=== PATIENT | male | born 1955 | race Caucasian/White ===

== ENCOUNTER 2016-10-31 07:42 | Day surgery (SDC) | payer OTHER ==
[~2016-10-31] VITALS: Ht 172.7 cm; Wt 142.0 kg
[2016-10-31 08:18] VITALS: BP 167/86; PULSE 129; RESP 20; TEMP 98.2; O2SAT 94
[2016-10-31] MEDS ORDERED: HYDR50TA15 PO (08:28)
[2016-10-31] MEDS ORDERED: ASPI81CH CHEW (08:28)
[2016-10-31] MEDS ORDERED: PIOG30TA4 PO (08:28)
[2016-10-31] MEDS ORDERED: VALS320T6 PO (08:28)
[2016-10-31] MEDS ORDERED: METF1000 PO (08:28)
[2016-10-31] MEDS ORDERED: SIMV40TA PO (08:28)
[2016-10-31] MEDS ORDERED: INSU1INJ14 SQ (08:28)
[2016-10-31] MEDS ORDERED: VICT18IN SQ (08:28)
[2016-10-31] MEDS ORDERED: FURO40TA PO (08:28)
[2016-10-31] MEDS ORDERED: METO50TA11 PO (08:28)
[2016-10-31] MEDS ORDERED: AMLO10TA2 PO (08:28)
[2016-10-31] MEDS ORDERED: NOVOLOGP2 SQ (08:28)
[2016-10-31] MEDS ORDERED: NS 1000P @30 MLS/HR (KVO) IV SCH (08:30)
[2016-10-31 08:35] LABS: AUTOMATED NEUTROPHIL # 5.2 TH/MM3 (1.8-7.7); BASOPHIL % 0.3 % (0.0-2.0); EOSINOPHIL # 0.1 TH/MM3 (0-0.4); EOSINOPHIL % 1.2 % (0.0-4.0); HEMATOCRIT 36.4 % (39.0-51.0); LYMPH % 13.9 % (9.0-44.0); MEAN CELL VOLUME 77.8 FL (80.0-100.0); MEAN CORPUSCULAR HEMOGLOBIN 24.9 PG (27.0-34.0); MONO % 10.8 % (0.0-8.0); NEUT % 73.8 % (16.0-70.0); PLATELET COUNT 192 TH/MM3 (150-450); RED BLOOD COUNT 4.68 MIL/MM3 (4.50-5.90); RED CELL DISTRIBUTION WIDTH 17.5 % (11.6-17.2)
[2016-10-31 08:39] LABS: HEMO FLAGS AUTO DIFF
[2016-10-31 08:45] LABS: APTT (PATIENT) 30.5 SEC (24.3-30.1); PROTHROMBIN TIME - PATIENT 11.3 SEC (9.8-11.6)
[2016-10-31 08:49] LABS: BICARBONATE 30.4 MEQ/L (21.0-32.0); POTASSIUM 4.1 MEQ/L (3.5-5.1)
[2016-10-31] MEDS ORDERED: HEPARIN-NS/PF INJ 500 ML ONE ×2 (09:27→10:45)
[2016-10-31] MEDS ORDERED: HYDROCORTISONE SOD SUCCINATE 100 MG VIAL ONE (09:28)
[2016-10-31] MEDS ORDERED: diphenhydrAMINE HCL 50 MG/ML VIAL ONE (09:28)
[2016-10-31] MEDS ORDERED: FAMOTIDINE 20 MG/2 ML VIAL ONE (09:28)
[2016-10-31] MEDS ORDERED: HEPARIN SODIUM - IV 10,000 UNITS/10 ML VIAL ONE (09:29)
[2016-10-31] MEDS ORDERED: MIDAZOLAM HCL 2 MG/2 ML VIAL ONE (09:29)
[2016-10-31] MEDS ORDERED: NITROGLYCERIN INJ 5 ML ONE (09:29)
[2016-10-31] MEDS ORDERED: VERAPAMIL HCL 5 MG/2 ML VIAL ONE (09:29)
[2016-10-31 09:33] LABS: PLATELET ESTIMATE SMEAR NORMAL (NORMAL); PLATELET MORPHOLOGY NORMAL (NORMAL); SCAN/DIFF AUTO DIFF CONFIRMED
[2016-10-31] MEDS ORDERED: IOHEXOL 350 MG/ML 50 ML BTL (for EPS) OTHER ONE (11:30)
--- NOTE | 2016-10-31 12:41 | MA ---
cc: PATRICIA FRANKLIN VARTAN MD GOLDSMITH, ALAN S. M.D. DATE: 10/31/2016 PROCEDURE Left heart catheterization, coronary angiogram. PREPROCEDURE DIAGNOSIS 1. Shortness of breath concerning for anginal equivalent with a Faroese anginal score of 3. 2. Abnormal CT of the coronaries showing extensive multivessel disease. POSTPROCEDURE DIAGNOSIS Multivessel disease as below. FLUOROSCOPY TIME 5.6 minutes. CONTRAST USED 40 cc. ESTIMATED BLOOD LOSS 10 cc. MEDICATIONS USED Versed 1 mg, fentanyl 50 mcg, verapamil 2.5 mg, nitroglycerin 200 mcg, heparin 4000 units. PROCEDURAL SUMMARY Urbano Bradley is a pleasant 61-year-old male who sees Dr. Roblero in the office and has been concerned with extensive shortness of breath over the past few months. Dr. Roblero decided that Urbano should undergo a coronary CT as it was felt due to his BMI that a stress test may not be as viable. Coronary CT showed extensive multivessel disease. He was recommended for cardiac catheterization for coronary anatomy. The risks, benefits and alternatives were explained to the patient and he consented as such. He was brought to the cardiac catheterization lab and prepped in the usual sterile fashion. The right radial artery was accessed using a modified Seldinger technique. A 5/6 Slender sheath was then inserted and aspirated and flushed with ease. A JR4 was then taken up over a J-wire to the ascending aorta. This was used to cross into the left ventricle and pressures were measured with an LVEDP of 32. The JR4 was then pulled back across the aortic valve showing no significant gradient for aortic stenosis. A JR4 was then used for selective angiography of the right coronary artery. The midportion of the right coronary artery is 100% occluded with a questionable bridging collateral which supplies somewhat of the distal vessel. There is competitive flow in the distal right coronary artery. The JR4 was then exchanged for a JL3.5. The JL3.5 was noted to cause some ventricularization when inserted into the left main concerning for disease. The JL3.5 was rotated out of the left main somewhat and angiography shows probable distal 60% stenosis of the left main. The left main gives off two vessels, with the LAD having significant disease diffusely with 70% proximal and mid to distal multiple 90% lesions. It does also give off one major diagonal which appears diffusely diseased at 50%. The left circumflex does have a mid lesion of 50-60% with three obtuse marginals. The first obtuse marginals is extremely small with moderate disease throughout. The second and third obtuse marginals appear to be larger in nature with proximal lesions of 70%. The left coronary system does supply collaterals to the right coronary system. The JL3.5 was then removed over a J-wire. A TR band was placed over the radial arteriotomy site and the sheath was removed. 10 cc of air was placed into the TR band. The patient left the cardiac catheterization lab cardiovascularly stable. IMPRESSION 1. Multivessel disease with shortness of breath, Faroese anginal score of 3. 2. Abnormal CT coronary showing extensive multivessel disease. 3. Elevated left ventricular end-diastolic pressure. RECOMMENDATIONS 1. Urbano Bradley appears to have extensive coronary artery disease and he will be recommended for CT surgery. 2. I spoke to Charlette, the nurse practitioner. for CT surgery and they will see him post procedure. 3. Further recommendations will be made after seen by CT surgery. Thank you for allowing me to see Urbano Bradley. If there are any questions, please do not hesitate to call. Patricia Franklin DO VGP/BT /11:53 AM /12:20 PM
[2016-10-31] MEDS ORDERED: CHLORHEXIDINE GLUCONATE 4% SOLN 120 ML BTL TOPICAL SCH (15:00)
--- NOTE | 2016-10-31 16:47 | RADRPT ---
EXAM DATE/TIME: 10/31/2016 15:24 [facility] COMPARISON: No previous studies available for comparison. INDICATIONS : Preop cardiac surgery. MEDICAL HISTORY : Hypertension. Diabetes. Shortness of breath. SURGICAL HISTORY : Cardiac cath. ENCOUNTER: Initial ACUITY: 3 months PAIN SCORE: 0/10 LOCATION: Bilateral neck PEAK SYSTOLIC VELOCITIES (cm/sec): ICA/CCA RATIO: Right: 1.9 Left: 2.4 ICA: Right: 160 Left: 210 CCA: Right: 82 Left: 87 ECA: Right: 153 Left: 167 VERTEBRAL: Right: 48 antegrade Left: 65 antegrade Elevated flow velocities and ICA/CCA ratios have been found to correlate with increased degrees of vessel stenosis, calculated as percentage of diameter relative to a normal segment of distal ICA/CCA FINDINGS: Examination quality is less than optimal due to patient body habitus. RIGHT CAROTID: There is calcified plaque in the carotid bulb and proximal internal carotid artery. The waveforms ar e within normal limits. LEFT CAROTID: There is calcified plaque in the carotid bulb. The waveforms are within normal limits. VERTEBRAL ARTERIES: Antegrade flow is seen in both vertebral arteries. MISCELLANEOUS: None. CONCLUSION: 1. Mildly elevated peak systolic velocity measurements in the proximal internal carotid arteries bila terally suggesting between 50-69% stenosis. 2. There is antegrade flow within both vertebral arteries. Jay Amado MD on October 31, 2016 at 16:44 Board Certified Radiologist. This report was verified electronically.
--- NOTE | 2016-10-31 16:48 | RADRPT ---
EXAM DATE/TIME: 10/31/2016 15:56 [facility] COMPARISON: No previous studies available for comparison. EXTERNAL COMPARISON : [facility], US LEG, RIGHT VENOUS DOPPLER, July 19, 2016, March 30, 2014. INDICATIONS : Preop cardiac surgery. MEDICAL HISTORY : Hypertension. Diabetes. Shortness of breath. SURGICAL HISTORY : Cardiac cath. ENCOUNTER: Initial ACUITY: 3 months PAIN SCORE: 0/10 LOCATION: Bilateral leg. TECHNIQUE: Venous ultrasound of the left and right leg was performed from the inguinal ligament to the proximal calf. Real-time, color Doppler and spectral tracing, compression and augmentation techniques were us ed. FINDINGS: RIGHT LEG: There is normal compressibility of the deep venous system from the inguinal region to the proximal ca lf. No echogenic clot is seen in the lumen of the common femoral, femoral, popliteal, and posterior tibial veins. There is a normal response of the venous system to proximal and distal augmentation an d respiration. LEFT LEG: There is normal compressibility of the deep venous system from the inguinal region to the proximal ca lf. No echogenic clot is seen in the lumen of the common femoral, femoral, popliteal, and posterior tibial veins. There is a normal response of the venous system to proximal and distal augmentation an d respiration. CONCLUSION: Normal examination. Jay Mcdonnell MD on October 31, 2016 at 16:46 Board Certified Radiologist. This report was verified electronically.
--- NOTE | 2016-10-31 17:01 | RADRPT ---
EXAM DATE/TIME: 10/31/2016 16:08 [facility] COMPARISON: No previous studies available for comparison. EXTERNAL COMPARISON : [facility], US LEG, RIGHT VENOUS DOPPLER, July 19, 2016, March 30, 2014. INDICATIONS : Preop cardiac surgery. MEDICAL HISTORY : Hypertension. Diabetes. Shortness of breath. SURGICAL HISTORY : Cardiac cath. ENCOUNTER: Initial ACUITY: 3 months PAIN SCORE: 0/10 LOCATION: Bilateral leg. GREATER SAPHENOUS VEIN THIGH: PROXIMAL: Right 5 mm Left 6 mm MID: Right 4 mm Left 3 mm DISTAL: Right 4 mm Left 3 mm CALF: PROXIMAL: Right 3 mm Left 3 mm MID: Right 3 mm Left 2 mm DISTAL: Right 3 mm Left 2 mm FINDINGS: The venous system of the lower extremities are patent by color Doppler imaging. Measurements of the leg veins (in mm) are listed above. CONCLUSION: Bilateral saphenous vein measurements are described above. No evidence of deep venous thrombosis with in the lower extremities. Shahid Leon MD on October 31, 2016 at 16:58 Board Certified Radiologist. This report was verified electronically.
--- NOTE | 2016-10-31 17:26 | EKG ---
Date Performed: 10/31/2016 Time Performed: 08:38:32 PTAGE: 61 years EKG: Sinus rhythm Possible inferior infarct - age undetermined Poor R wave progression Lateral ST-T changes may be due to myocardial ischemia Abnormal ECG NO PREVIOUS TRACING DOCTOR: Isac Bowie Interpretating Date/Time 10/31/2016 17:24:57
--- NOTE | 2016-10-31 17:40 | RADRPT ---
EXAM DATE/TIME: 10/31/2016 17:16 [facility] COMPARISON: No previous studies available for comparison. INDICATIONS : Evaluate for pneumonia, pneumothorax, and communicable disease. Pre op for open heart surgery. MEDICAL HISTORY: Hypertension. Diabetes. Shortness of breath. SURGICAL HISTORY: Cardiac cath. ENCOUNTER: Initial ACUITY: 1 week PAIN SCORE: 3/10 LOCATION: Bilateral chest FINDINGS: The heart is enlarged. Minimal increased interstitial changes are noted suggesting minimal pulmonary vascular congestion. Degenerative changes are noted throughout the thoracic spine. CONCLUSION: 1. Cardiomegaly. 2. Minimal increased interstitial changes suggesting minimal pulmonary vascular congestion. Clinical correlation is recommended. Shahid Leon MD on October 31, 2016 at 17:34 Board Certified Radiologist. This report was verified electronically.
[2016-10-31 17:44] LABS: HEMOGLOBIN A1b 0.8 %; HEMOGLOBIN F 1.2 %; HEMOGLOBIN P3 4.1 %
--- NOTE | 2016-10-31 18:00 | PD.CAR.PN ---
CVT Progress Note Subjective/Hospital Course: sts data discussed with pt RISK SCORES About the STS Risk Calculator Procedure: CAB Only Risk of Mortality: 1.234% Morbidity or Mortality: 13.957% Long Length of Stay: 5.751% Short Length of Stay: 42.689% Permanent Stroke: 0.711% Prolonged Ventilation: 9.463% DSW Infection: 1.276% Renal Failure: 4.224% Reoperation: 4.363% Objective: Vital Signs Date Time Temp Pulse Resp B/P Pulse Ox O2 Delivery O2 Flow Rate FiO2 10/31/16 13:02 94 Room Air 10/31/16 08:18 98.2 129 20 167/86 94 Labs: Laboratory Tests Test 10/31/16 08:15 White Blood Count 7.0 TH/MM3 (4.0-11.0) Red Blood Count 4.68 MIL/MM3 (4.50-5.90) Hemoglobin 11.6 GM/DL (13.0-17.0) Hematocrit 36.4 % (39.0-51.0) Mean Corpuscular Volume 77.8 FL (80.0-100.0) Mean Corpuscular Hemoglobin 24.9 PG (27.0-34.0) Mean Corpuscular Hemoglobin 32.0 % Concent (32.0-36.0) Red Cell Distribution Width 17.5 % (11.6-17.2) Platelet Count 192 TH/MM3 (150-450) Mean Platelet Volume 9.1 FL (7.0-11.0) Neutrophils (%) (Auto) 73.8 % (16.0-70.0) Lymphocytes (%) (Auto) 13.9 % (9.0-44.0) Monocytes (%) (Auto) 10.8 % (0.0-8.0) Eosinophils (%) (Auto) 1.2 % (0.0-4.0) Basophils (%) (Auto) 0.3 % (0.0-2.0) Neutrophils # (Auto) 5.2 TH/MM3 (1.8-7.7) Lymphocytes # (Auto) 1.0 TH/MM3 (1.0-4.8) Monocytes # (Auto) 0.8 TH/MM3 (0-0.9) Eosinophils # (Auto) 0.1 TH/MM3 (0-0.4) Basophils # (Auto) 0.0 TH/MM3 (0-0.2) CBC Comment AUTO DIFF Differential Comment AUTO DIFF CONFIRMED Platelet Estimate NORMAL (NORMAL) Platelet Morphology Comment NORMAL (NORMAL) Prothrombin Time 11.3 SEC (9.8-11.6) Prothromb Time International 1.0 RATIO Ratio Activated Partial 30.5 SEC Thromboplast Time (24.3-30.1) Sodium Level 141 MEQ/L (136-145) Potassium Level 4.1 MEQ/L (3.5-5.1) Chloride Level 106 MEQ/L (98-107) Carbon Dioxide Level 30.4 MEQ/L (21.0-32.0) Anion Gap 5 MEQ/L (5-15) Blood Urea Nitrogen 20 MG/DL (7-18) Creatinine 0.96 MG/DL (0.60-1.30) Estimat Glomerular Filtration 79 ML/MIN (>89) Rate Random Glucose 111 MG/DL (74-106) Calcium Level 9.1 MG/DL (8.5-10.1) Result Diagram: 10/31/16 0815 10/31/16 0815 Diamond kSy Oct 31, 2016 18:00
[2016-10-31 18:29] LABS: BLOOD, URINE NEG (NEG); COMMENT (UR) CULT NOT INDICATED; CULTURE IF INDICATED CULT NOT INDICATED; GLUCOSE,URINE NEG (NEG); KETONE, URINE NEG (NEG); NITRITE,URINE NEG (NEG); URINE COLOR YELLOW (YELLW/STRAW)
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
--- NOTE | 2016-11-06 10:00 | RSPPFT ---
DATE OF PROCEDURE: 10/31/16 COMMENTS: Spirometry with FVC of 11, FEV1 of 0.8, FEV1/FVC ratio at 73%. Flow volume loops suggest airways obstruction. IMPRESSION: 1. Severe airways obstruction. 2. Post-bronchodilator study was not performed.
[2016-11-21] MEDS ORDERED: rolling walker (15:19)
[2016-11-23] MEDS ORDERED: DIOV80TA4 PO (08:32)
[2016-11-23] MEDS ORDERED: THERTAB15 PO (08:32)
[2016-11-23] MEDS ORDERED: CEPH500C PO (08:32)
[2016-11-23] MEDS ORDERED: PANT40TA3 PO (08:32)
[2016-11-23] MEDS ORDERED: ASPI81CH CHEW (08:32)
[2016-11-23] MEDS ORDERED: FERR325T PO (08:32)
[2016-11-23] MEDS ORDERED: METO50TA11 PO (08:32)
[2016-11-23] MEDS ORDERED: LEVEMIR SQ (08:32)
[2016-11-23] MEDS ORDERED: DOCU1CAP39 PO (08:32)
[2016-11-23] MEDS ORDERED: POTA20TA5 PO (08:32)
[2016-11-23] MEDS ORDERED: PLAV75TA29 PO (08:32)
[2016-11-23] MEDS ORDERED: PIOG30TA4 PO (08:32)
[2016-11-23] MEDS ORDERED: SIMV40TA PO (08:32)
[2016-11-23] MEDS ORDERED: AMIO200T PO (08:32)
[2016-11-23] MEDS ORDERED: FURO1TAB60 PO (08:32)
[2016-11-23] MEDS ORDERED: METF1000 PO (08:32)
[2017-01-29] MEDS ORDERED: DIOV80TA4 PO (12:45)
[2017-01-29] MEDS ORDERED: PLAV75TA29 PO (12:45)
[2017-01-29] MEDS ORDERED: PANT40TA3 PO (12:45)
[2017-01-29] MEDS ORDERED: POTA20TA5 PO (12:45)
== END 2016-10-31 18:33 | disposition home or self-care (01) ==
LOC: HCAT 07:42 → HDIC 08:14 → HCAT 18:33
PROVIDERS: ATTEND Nuclear Medicine Nuclear Cardiology
DX: I25.10 Atherosclerotic heart disease of native coronary artery without angina pectoris (principal); R94.31 Abnormal electrocardiogram [ECG] [EKG]; E11.9 Type 2 diabetes mellitus without complications; E78.5 Hyperlipidemia, unspecified; I10 Essential (primary) hypertension; E66.01 Morbid (severe) obesity due to excess calories; Z68.42 Body mass index [BMI] 45.0-49.9, adult; Z79.4 Long term (current) use of insulin; Z79.899 Other long term (current) drug therapy
CPT/HCPCS: 71020; 80048; 81001; 83036; 85025; 85610; 85730; 87641; 93005; 93454; 93880; 93970; 93998; 94010; C1769; C1893; J1200; J1644; J1720; J2250; J3010; J7030; Q9967

== ENCOUNTER 2016-11-01 11:43 | Inpatient (IN) | payer OTHER ==
[~2016-11-01] VITALS: Ht 174 cm; Wt 140.6 kg
[~2016-11-01 11:43] MED LIST: AMLO10TA2 PO; ASPI81CH CHEW; FURO40TA PO; HYDR50TA15 PO; INSU1INJ14 SQ; METF1000 PO; METO50TA11 PO; NOVOLOGP2 SQ; PIOG30TA4 PO; SIMV40TA PO; VALS320T6 PO; VICT18IN SQ
[2016-11-07] VITALS (11 sets, daily range): BP systolic 93–159; BP diastolic 44–80; PULSE 72–97; RESP 12–22; TEMP 97.8–98.2; O2SAT 92–96
[2016-11-07] MEDS ORDERED: ceFAZolin 2 GM PREMIX 50 ML IV ONE (05:00)
[2016-11-07] MEDS ORDERED: VECURONIUM BROMIDE 10 MG VIAL IV ONE (05:00)
[2016-11-07] MEDS ORDERED: HEPARIN SODIUM - SQ 10,000 UNITS/ML VIAL SQ ONE (05:00)
[2016-11-07] MEDS ORDERED: DEXMEDETOMIDINE INJ 50 ML IV ONE (05:00)
[2016-11-07] MEDS ORDERED: AMINOCAPROIC ACID INJ 250 MG/ML 20 ML VIAL IV ONE (05:00)
[2016-11-07] MEDS ORDERED: PROTAMINE SULFATE 250 MG/25 ML VIAL IV ONE ×2 (05:00→11:52)
[2016-11-07] MEDS ORDERED: FUROSEMIDE 100 MG/10 ML VIAL IV PUSH ONE (05:00)
[2016-11-07] MEDS ORDERED: MAGNESIUM SULFATE 1000 MG/2 ML VIAL (PED) IV ONE (05:00)
[2016-11-07] MEDS ORDERED: CEFAZOLIN 500 MG in NS IRR BTL 500 ML IRRIGATION SCH (05:45)
[2016-11-07] MEDS ORDERED: INSULIN REGULAR 100 UNITS in NS 100 ML IV SCH (05:45)
[2016-11-07] MEDS ORDERED: METOPROLOL TARTRATE 25 MG TAB PO SCH (05:45)
[2016-11-07] MEDS ORDERED: INSULIN HUMAN REGULAR 1,000 UNITS/10 ML VIAL SQ PRN (05:45)
[2016-11-07] MEDS ORDERED: CHLORHEXIDINE GLUCONATE 4% SOLN 120 ML BTL TOPICAL SCH (05:45)
[2016-11-07] MEDS ORDERED: METOPROLOL TARTRATE 25 MG TAB PO PRN (05:45)
[2016-11-07] MEDS ORDERED: ceFAZolin 2 GM PREMIX 50 ML IV SCH (05:45)
[2016-11-07] MEDS ORDERED: HEPARIN SODIUM - IV 10,000 UNITS/10 ML VIAL ONE ×2 (06:14→06:35)
[2016-11-07] MEDS ORDERED: HEPARIN SODIUM - SQ 10,000 UNITS/ML VIAL ONE (06:14)
[2016-11-07] MEDS ORDERED: VANCOMYCIN HCL 1000 MG VIAL ONE ×2 (06:14→13:36)
[2016-11-07] MEDS ORDERED: methylPREDNISolone SOD SUCC 125 MG/2 ML VIAL ONE (06:15)
[2016-11-07] MEDS ORDERED: ALBUMIN HUMAN 25% 12.5 GM/50 ML BAGP IV ONE (06:33)
[2016-11-07] MEDS ORDERED: POTASSIUM CHLORIDE 20 MEQ/10 ML VIAL ONE (06:33)
[2016-11-07] MEDS ORDERED: CARDIOPLEGIC IRR 1,000 ML ONE (06:33)
[2016-11-07] MEDS ORDERED: SODIUM BICARBONATE 8.4% INJ 50 ML ONE (06:34)
[2016-11-07] MEDS ORDERED: MANNITOL INJ 50 ML ONE (06:34)
[2016-11-07] MEDS ORDERED: SODIUM CHLORID 0.9% 500 ML IV SCH (07:00)
[2016-11-07] MEDS ORDERED: LACTATED RINGER'S 1000 ML IV SCH (07:00)
[2016-11-07] MEDS ORDERED: MUPIROCIN 2% OINT 22 GM TUBE EACH NARE SCH (09:00)
[2016-11-07] MEDS ORDERED: MUPIROCIN 2% OINT 1 APPLIC/GM SYR NASAL SCH (09:00)
[2016-11-07] MEDS: PAPAVERINE 60 MG-NITROGLYCERIN 100 MCG-DILTIAZEM 100 MG in NS 100 ML IRRIGATION SCH ×8 (09:14→09:15)
[2016-11-07] MEDS ORDERED: NORMOSOL R INJ 2,000 ML IV ONE (11:52)
[2016-11-07] MEDS ORDERED: SODIUM CHLOR 0.9% 250 ML INJ 500 ML IV ONE (11:52)
[2016-11-07] MEDS ORDERED: LACTATED RINGER'S 1000 ML INJ 3,000 ML IV ONE (11:52)
[2016-11-07] MEDS ORDERED: SODIUM CHLORID 0.9% 500 ML INJ 500 ML IV ONE (11:52)
[2016-11-07] MEDS ORDERED: SODIUM CHLORIDE 0.9% INJ 100 ML IV ONE (11:52)
[2016-11-07] MEDS ORDERED: ACETAMINOPHEN 650 MG SUPP RECTAL PRN (12:45)
[2016-11-07] MEDS ORDERED: ONDANSETRON HCL 4 MG/2 ML VIAL IV PUSH PRN (12:45)
[2016-11-07] MEDS ORDERED: CALCIUM CHLORIDE 10% 1 GRAM/10 ML VIAL IV PRN (12:45)
[2016-11-07] MEDS ORDERED: hydrALAZINE HCL 20 MG/ML VIAL IV PRN (12:45)
[2016-11-07] MEDS ORDERED: SODIUM CHLORIDE 0.9% FLUSH 5 ML FLUSH IV FLUSH PRN (12:45)
[2016-11-07] MEDS ORDERED: POTASSIUM CHLOR 20 MEQ PREMIX 100 ML IV PRN ×3 (12:45)
[2016-11-07] MEDS ORDERED: ACETAMINOPHEN 325 MG TAB PO PRN (12:45)
[2016-11-07] MEDS ORDERED: POTASSIUM CHLORIDE 20 MEQ CONTROLLED RELEASE TAB PO PRN ×2 (12:45)
[2016-11-07] MEDS ORDERED: LACTATED RINGER'S 1000 ML INJ 500 ML IV PRN (12:45)
[2016-11-07] MEDS ORDERED: METOPROLOL TARTRATE 5 MG/5 ML VIAL IV PUSH PRN (12:45)
[2016-11-07] MEDS ORDERED: INSULIN REGULAR (IV INFUSION) 100 UNITS in SODIUM CHLORIDE 0.9% INJ 99 ML IV SCH (12:45)
[2016-11-07] MEDS ORDERED: CALCIUM CHLORIDE INJ 1 GM in SODIUM CHLORIDE 0.9% INJ 100 ML IV PRN (12:45)
[2016-11-07] MEDS ORDERED: DEXTROSE 50% IN WATER 50 ML VIAL(D50) IV PUSH PRN (12:45)
[2016-11-07] MEDS ORDERED: MAGNESIUM SULFATE INJ 2 GM in SODIUM CHLORIDE 0.9% INJ 100 ML IV PRN ×4 (12:45)
[2016-11-07] MEDS ORDERED: Post-op Orders (for Pharmacy) MISC OTHER ONE (12:45)
[2016-11-07] MEDS ORDERED: SUGAMMADEX SODIUM 200 MG/2 ML VIAL IV PUSH ONE ×2 (12:54)
--- NOTE | 2016-11-07 12:56 | PD.OP ---
cc: Sanjiv Reynolds MD; Rhonda Roth MD Operative Report Date of Surgery: Nov 07, 2016 Preoperative Diagnosis: (1) CAD (coronary artery disease) (2) Angina pectoris, crescendo (3) Morbid obesity Postoperative Diagnosis: same Procedure: CABG x 3 SANDOVAL to LAD - fair SVG to OM - fair SVG to PDA - fair EVH Anesthesia: General Surgeon: Rhonda Roth Strategic Debriefing Specialist(s): KARINA Nino Operation and Findings: The risks, benefits, complications, treatment options, and expected outcomes were discussed with the patient. The possibilities of reaction to medication, pulmonary aspiration, perforation of viscus, bleeding, recurrent infection, the need for additional procedures, failure to diagnose a condition, and creating a complication requiring transfusion or operation were discussed with the patient. The patient concurred with the proposed plan, giving informed consent. The site of surgery properly noted/marked. The patient was taken to Operating Room, identified as Urbano Bradley and the procedure verified as CABG, EVH. A Time Out was held and the above information confirmed. Standard monitoring lines and Welsh catheter were placed. General anesthesia was induced. The patient was prepped and draped in a sterile fashion. A median sternotomy was performed and electrocautery was used to obtain hemostasis. The left internal mammary artery was procured as a pedicle from the 7th rib to the 1st rib in the usual manner. Simultaneously left greater saphenous vein was procured from the left leg using a minimally invasive endoscopic technique. The vein was prepared for anastomosis and the leg wound was irrigated and closed in 2 layers. The pericardium was opened and a pericardial sling was created using interrupted 0 silk sutures. The patient was heparinized for cardiopulmonary bypass and the distal mammary pedicle was instrumented for anastomosis. The heart was instrumented for cardiopulmonary bypass in the usual manner. Antegrade blood cardioplegia was employed. The patient was placed on cardiopulmonary bypass. An aortic cross-clamp was applied and the heart was arrested using cold blood cardioplegia. Antegrade cardioplegia was administered after he each anastomosis. After adequate arrest, the distal right coronary circulation was investigated and the PDA was opened with a [place] blade and found to be a 1 millimeter fair target with diffuse disease. Saphenous vein was approximated to the PDA artery using a running 7 0 Prolene suture. The graft was measured for length and orientation and the proximal anastomosis was constructed to the ascending aorta using a running 5 0 Prolene suture after creating an aortotomy with a 5 millimeter punch. The 1st circumflex marginal artery was then opened with a [place] blade and found to be a 1 millimeter fair target. Saphenous vein was approximated to the OM1 artery using a running 7 0 Prolene suture. The graft was measured for length and orientation and was suspended from the pericardium. The distal LAD was opened with a [place] blade and found to be a 1 millimeter fair target with diffuse disease. The left internal mammary artery was approximated to the LAD using a running 7 0 Prolene suture. The pedicle was attached to the epicardium using interrupted 5 0 silk suture. The patient was systemically rewarmed and received a hotshot dose of warm blood cardioplegia. The aorta was vented and the proximal anastomosis to the OM1 graft was accomplished using a running 5 0 Prolene suture after creating an aortotomy was a 5 millimeter punch. The cross-clamp was removed and all proximal and distal anastomoses were examined for hemostasis. The patient was weaned from cardiopulmonary bypass. Protamine was given. There was no adverse reaction. Decannulation was carried out without incident. Wound was checked for hemostasis which was obtained using electrocautery. A 36 Dominican mediastinal and 32 Dominican left pleural chest was were placed and secured to the skin with 0 silk suture. The sternum was closed with stainless steel wire and a plating system due to the patient's morbid obesity. The fascia was closed with 1. PDS. The subcutaneous tissue was closed using a running 2-0 Vicryl suture. The skin was closed with 4-0 Monocryl. Sterile dressings were placed. At the end of the operation, all sponge, instruments, and needle counts were correct. The patient was transferred to the CVICU in stable condition. Findings: Diffuse coronary disease with fair to poor distal targets. Large epicardial fat deposition XC: 83 min CPB: 96 min Drains: mediastinal x 1 pleural x 1 Complications: none Disposition: to CVICU in stable condition Rhonda Roth MD Nov 07, 2016 12:56
[2016-11-07] MEDS ORDERED: CLEVIDIPINE INJ 50 ML IV SCH (13:30)
[2016-11-07] MEDS ORDERED: MIDAZOLAM HCL 5 MG/5 ML VIAL ONE (13:40)
[2016-11-07] MEDS ORDERED: fentaNYL CITRATE 1000 MCG/20 ML VIAL ONE (13:40)
--- NOTE | 2016-11-07 14:58 | RADRPT ---
EXAM DATE/TIME: 11/07/2016 13:46 [facility] COMPARISON: CHEST PA & LAT, October 31, 2016, 17:16. INDICATIONS : S/p cabg. MEDICAL HISTORY : Hypertension. SURGICAL HISTORY : cardiac cath ENCOUNTER: Initial ACUITY: 1 day PAIN SCORE: Non-responsive. LOCATION: Bilateral chest FINDINGS: Postsurgical changes are identified following CABG. Supportive devices which includes endotracheal tu be, nasogastric tube, right jugular sheath, mediastinal drain and left thoracostomy tubes are in good position. Lungs are hypoaerated. There is focal airspace disease in the left base. There is loss of pneumothorax or significant congestion. CONCLUSION: Surgical changes status post CABG. Support devices in good position. No evidence of pneumothorax or significant congestion. Lionel Valencia MD on November 07, 2016 at 14:54 Board Certified Radiologist. This report was verified electronically.
[2016-11-07] MEDS: ACETAMINOPHEN 1000 MG/100 ML VIAL IV SCH ×2 (16:49→21:46)
[2016-11-07] MEDS: METOCLOPRAMIDE HCL 10 MG/2 ML VIAL IV PUSH SCH ×2 (16:50→21:41)
[2016-11-07] MEDS: ceFAZolin 2 GM PREMIX 50 ML IV SCH ×2 (16:50→23:55)
[2016-11-07] MEDS ORDERED: RESP: RACEPINEPHRINE 2.25% 0.5 ML NEB NEB PRN (19:45)
[2016-11-07] MEDS ORDERED: RESP: ALBUTEROL 2.5 MG/IPRATROPIUM 0.5 MG NEB (PRN) NEB (19:45)
[2016-11-07] MEDS: RESP: ALBUTEROL 2.5 MG/IPRATROPIUM 0.5 MG NEB (SCH) NEB (20:32)
[2016-11-07] MEDS: SODIUM CHLORIDE 0.9% FLUSH 5 ML FLUSH IV FLUSH SCH ×2 (21:00→21:42)
[2016-11-07] MEDS: PRAVASTATIN SOD 80 MG TAB PO SCH (21:41)
[2016-11-07] MEDS: AMIODARONE 200 MG TAB PO SCH (21:41)
[2016-11-08] VITALS (9 sets, daily range): BP systolic 68–144; BP diastolic 57–70; PULSE 82–103; RESP 18–22; TEMP 97.8–98.7; O2SAT 92–96
[2016-11-08] MEDS: RESP: ALBUTEROL 2.5 MG/IPRATROPIUM 0.5 MG NEB (SCH) NEB ×3 (03:38→20:20)
[2016-11-08] MEDS: oxyCODONE/ACETAMINOPHEN 5 MG/325 MG TAB PO PRN ×4 (04:17→20:30)
[2016-11-08] MEDS: ACETAMINOPHEN 1000 MG/100 ML VIAL IV SCH ×2 (04:18→09:10)
[2016-11-08 05:31] LABS: HEMATOCRIT 31.1 % (39.0-51.0); MEAN CELL VOLUME 78.8 FL (80.0-100.0); MEAN CORPUSCULAR HEMOGLOBIN 24.9 PG (27.0-34.0); MEAN CORPUSCULAR HGB CONC 31.6 % (32.0-36.0); PLATELET COUNT 163 TH/MM3 (150-450); RED BLOOD COUNT 3.94 MIL/MM3 (4.50-5.90); RED CELL DISTRIBUTION WIDTH 17.7 % (11.6-17.2); WHITE BLOOD COUNT 14.9 TH/MM3 (4.0-11.0)
[2016-11-08 05:39] LABS: REVIEW FLAG FINAL
[2016-11-08 05:50] LABS: BICARBONATE 24.3 MEQ/L (21.0-32.0); MAGNESIUM 2.3 MG/DL (1.5-2.5); POTASSIUM 4.5 MEQ/L (3.5-5.1)
[2016-11-08] MEDS: PANTOPRAZOLE SOD 40 MG DELAYED RELEASE TAB PO SCH (05:55)
[2016-11-08] MEDS: METOCLOPRAMIDE HCL 10 MG/2 ML VIAL IV PUSH SCH ×4 (06:00→18:49)
--- NOTE | 2016-11-08 06:12 | RADRPT ---
EXAM DATE/TIME: 11/08/2016 05:21 [facility] COMPARISON: CHEST SINGLE AP, November 07, 2016, 13:46. INDICATIONS : Status post CABG. MEDICAL HISTORY : Hypertension. Diabetes SURGICAL HISTORY : Coronary artery stent. CABG. ENCOUNTER: Subsequent ACUITY: 1 week PAIN SCORE: Non-responsive. LOCATION: Bilateral chest FINDINGS: There has been interval extubation and removal of nasogastric tube. Right neck sheath and central cat heter are stable. Left thoracostomy tube and midline chest tube remain. Lungs are clear. Cardiomedias tinal contours are satisfactory. CONCLUSION: Interval extubation. Improved aeration. Jay Mcdonnell MD on November 08, 2016 at 6:10 Board Certified Radiologist. This report was verified electronically.
[2016-11-08] MEDS ORDERED: INSULIN DETEMIR 100 UNITS/ML VIAL SQ ONE (08:45)
[2016-11-08] MEDS ORDERED: MAGNESIUM HYDROXIDE SUSP 30 ML CUP PO PRN (08:45)
[2016-11-08] MEDS ORDERED: GLUCAGON 1 MG/ML VIAL OTHER PRN (08:45)
[2016-11-08] MEDS ORDERED: SOD PHOSPHATE/SOD BIPHOSPHATE (ADULT) ENEMA 133ML RECTAL PRN (08:45)
[2016-11-08] MEDS ORDERED: DEXTROSE 50% IN WATER 50 ML VIAL(D50) IV PRN (08:45)
[2016-11-08] MEDS ORDERED: BISACODYL 10 MG SUPP RECTAL PRN (08:45)
[2016-11-08] MEDS ORDERED: BISACODYL EC 5 MG TABEC PO PRN (08:45)
--- NOTE | 2016-11-08 08:57 | PD.CAR.PN ---
CVT Progress Note CVT: POD #: 1 Subjective/Hospital Course: 61/ male recent dyspnea , SOB with exertion, seen by PCP and Dr Roblero , abnormal JONNY, + CTA coronaries, Heart cath showed triple vessel disease, LM 60 % prox LAD 70% mid-distal LAD 90% diagonal 50%, circ 60%, OM 80% RCA 100% EF 60 % , pt was dc home post cath , and re-admitted for elective CABG PMH: CAD, DM type 2 on insulin, HTN, HLP, morbid obesity surgery : CABG x 3, SANDOVAL to LAD - fair, SVG to OM - fair, SVG to PDA - fair, L EVH 3500 crystalloid, 1400 cell saver, 700 urine 11/08 + 4 kg , chest tube 200cc/ 12 hrs + rub wean off insulin gtt, pt on insulin at home / add levemir BID start BB , add home BP meds as needed IS, OOB , ok to transfer to stepdown Objective: GENERAL: sitting up in chair SKIN: Warm and dry. prevena to chest , josé luis wrap to left leg HEAD: Normocephalic. EYES: No scleral icterus. No injection or drainage. NECK: Supple, trachea midline. No JVD or lymphadenopathy. CARDIOVASCULAR: Regular rate and rhythm without murmurs, gallops, + rubs. general edema RESPIRATORY: Breath sounds equal bilaterally. No accessory muscle use. chest tube no air leak + 200cc/ GASTROINTESTINAL: Abdomen soft, non-tender, nondistended. MUSCULOSKELETAL: No cyanosis, or edema. BACK: Nontender without obvious deformity. No CVA tenderness. Vital Signs Date Time Temp Pulse Resp B/P Pulse Ox O2 Delivery O2 Flow Rate FiO2 11/08/16 07:20 94 Nasal Cannula 3.00 11/08/16 05:00 22 11/08/16 05:00 22 11/08/16 04:00 95 Nasal Cannula 3.00 11/08/16 04:00 98.7 103 22 94 138/57 11/08/16 03:53 100 11/08/16 01:00 96 Nasal Cannula 3.00 11/08/16 00:00 98.7 98 22 96 117/61 11/08/16 00:00 96 Nasal Cannula 4.00 11/07/16 23:50 97 11/07/16 20:33 93 Nasal Cannula 4.00 11/07/16 20:00 98.2 91 22 94 133/62 11/07/16 20:00 94 Nasal Cannula 4.00 11/07/16 19:45 91 11/07/16 16:15 92 Nasal Cannula 4 11/07/16 16:15 93 Nasal Cannula 4.00 11/07/16 16:00 75 11/07/16 16:00 97.8 75 22 93 99/51 11/07/16 15:50 93 40 11/07/16 15:38 94 40 11/07/16 15:00 95 Mechanical Ventilator 40 11/07/16 14:30 96 Mechanical Ventilator 60 11/07/16 14:15 95 Mechanical Ventilator 70 11/07/16 14:00 95 Mechanical Ventilator 80 11/07/16 13:35 94 60 11/07/16 13:30 94 Mechanical Ventilator 60 11/07/16 13:30 60 11/07/16 13:30 98.2 72 12 94/57 94 93/44 11/07/16 13:30 72 Labs: Laboratory Tests Test 11/08/16 04:50 White Blood Count 14.9 TH/MM3 (4.0-11.0) Red Blood Count 3.94 MIL/MM3 (4.50-5.90) Hemoglobin 9.8 GM/DL (13.0-17.0) Hematocrit 31.1 % (39.0-51.0) Mean Corpuscular Volume 78.8 FL (80.0-100.0) Mean Corpuscular Hemoglobin 24.9 PG (27.0-34.0) Mean Corpuscular Hemoglobin 31.6 % Concent (32.0-36.0) Red Cell Distribution Width 17.7 % (11.6-17.2) Platelet Count 163 TH/MM3 (150-450) Mean Platelet Volume 9.5 FL (7.0-11.0) Sodium Level 140 MEQ/L (136-145) Potassium Level 4.5 MEQ/L (3.5-5.1) Chloride Level 105 MEQ/L (98-107) Carbon Dioxide Level 24.3 MEQ/L (21.0-32.0) Anion Gap 11 MEQ/L (5-15) Blood Urea Nitrogen 27 MG/DL (7-18) Creatinine 0.99 MG/DL (0.60-1.30) Estimat Glomerular Filtration 76 ML/MIN (>89) Rate Random Glucose 120 MG/DL (74-106) Calcium Level 8.0 MG/DL (8.5-10.1) Magnesium Level 2.3 MG/DL (1.5-2.5) Result Diagram: 11/08/1644911/08/16449 Telemetry: NSR (1) CAD (coronary artery disease) (2) S/P CABG x 3 Plan: ASA, statin , BB low dose diuretic control BP aggressive pulm toileting nebs , ezpap (3) Morbid obesity Plan: will need weight loss program with cardiac rehab (4) Diabetes mellitus Plan: start levemir , wean off insulin gtt 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
[2016-11-08] MEDS ORDERED: POTASSIUM CHLORIDE 8 MEQ CONTROLLED RELEASE TAB PO ONE (09:00)
[2016-11-08] MEDS ORDERED: FUROSEMIDE 40 MG/4 ML VIAL IV PUSH ONE (09:00)
[2016-11-08] MEDS ORDERED: metFORMIN HCL 500 MG TAB PO SCH (09:00)
[2016-11-08] MEDS: SODIUM CHLORIDE 0.9% FLUSH 5 ML FLUSH IV FLUSH SCH ×4 (09:00→21:00)
[2016-11-08] MEDS: METOPROLOL TARTRATE 25 MG TAB PO SCH ×2 (09:08→18:49)
[2016-11-08] MEDS: ceFAZolin 2 GM PREMIX 50 ML IV SCH ×3 (09:09→23:46)
[2016-11-08] MEDS: ASPIRIN 81 MG CHEW TAB PO SCH (09:09)
[2016-11-08] MEDS: AMIODARONE 200 MG TAB PO SCH ×2 (09:09→20:30)
[2016-11-08] MEDS: MULTIVITAMINS/MINERALS THERAPEUTIC TAB PO SCH (09:09)
[2016-11-08] MEDS: INSULIN ASPART SUPPLEMENTAL SCALE SQ SCH ×4 (10:00→22:00)
--- NOTE | 2016-11-08 19:50 | EKG ---
Date Performed: 11/08/2016 Time Performed: 03:18:20 PTAGE: 61 years EKG: Sinus tachycardia Extensive ST-T changes Low QRS voltages in precordial leads Abnormal ECG Compared to the PREVIOUS TRACING , rate faster DOCTOR: Kali Araujo Interpretating Date/Time 11/08/2016 19:49:41
[2016-11-08] MEDS: PRAVASTATIN SOD 80 MG TAB PO SCH (20:30)
[2016-11-08] MEDS: INSULIN DETEMIR 100 UNITS/ML VIAL SQ SCH (21:00)
[2016-11-09] VITALS (12 sets, daily range): BP systolic 102–143; BP diastolic 58–70; PULSE 82–135; RESP 18–22; TEMP 97.7–97.9; O2SAT 92–97
[2016-11-09] MEDS: METOPROLOL TARTRATE 25 MG TAB PO SCH (00:25)
[2016-11-09 04:48] LABS: AUTOMATED NEUTROPHIL # 9.8 TH/MM3 (1.8-7.7); BASOPHIL % 0.3 % (0.0-2.0); EOSINOPHIL % 0.1 % (0.0-4.0); HEMATOCRIT 27.7 % (39.0-51.0); LYMPH % 6.9 % (9.0-44.0); LYMPHOCYTE # 0.9 TH/MM3 (1.0-4.8); MEAN CORPUSCULAR HEMOGLOBIN 24.9 PG (27.0-34.0); MEAN CORPUSCULAR HGB CONC 31.5 % (32.0-36.0); MONO % 13.4 % (0.0-8.0); NEUT % 79.3 % (16.0-70.0); PLATELET COUNT 147 TH/MM3 (150-450); WHITE BLOOD COUNT 12.3 TH/MM3 (4.0-11.0)
[2016-11-09 05:07] LABS: HEMO FLAGS AUTO DIFF
[2016-11-09 05:12] LABS: BICARBONATE 26.7 MEQ/L (21.0-32.0); MAGNESIUM 2.4 MG/DL (1.5-2.5); POTASSIUM 4.5 MEQ/L (3.5-5.1)
[2016-11-09] MEDS: PANTOPRAZOLE SOD 40 MG DELAYED RELEASE TAB PO SCH (05:27)
[2016-11-09] MEDS: oxyCODONE/ACETAMINOPHEN 5 MG/325 MG TAB PO PRN ×3 (05:27→23:45)
[2016-11-09] MEDS: INSULIN ASPART SUPPLEMENTAL SCALE SQ SCH ×4 (06:00→21:42)
[2016-11-09] MEDS: RESP: ALBUTEROL 2.5 MG/IPRATROPIUM 0.5 MG NEB (SCH) NEB ×3 (07:29→20:38)
[2016-11-09 07:46] LABS: PLATELET ESTIMATE SMEAR NORMAL (NORMAL); PLATELET MORPHOLOGY NORMAL (NORMAL); SCAN/DIFF AUTO DIFF CONFIRMED
[2016-11-09] MEDS: POLYETHYLENE GLYCOL 17 GM PKG PO SCH (08:55)
[2016-11-09] MEDS: MULTIVITAMINS/MINERALS THERAPEUTIC TAB PO SCH (08:55)
[2016-11-09] MEDS: ASPIRIN 81 MG CHEW TAB PO SCH (08:55)
[2016-11-09] MEDS: DOCUSATE SODIUM 100 MG CAP PO SCH ×2 (08:55→21:27)
[2016-11-09] MEDS: INSULIN DETEMIR 100 UNITS/ML VIAL SQ SCH ×2 (08:55→21:26)
[2016-11-09] MEDS: AMIODARONE 200 MG TAB PO SCH (08:55)
[2016-11-09] MEDS: METOCLOPRAMIDE HCL 10 MG/2 ML VIAL IV PUSH SCH ×2 (08:56→13:09)
[2016-11-09] MEDS: SODIUM CHLORIDE 0.9% FLUSH 5 ML FLUSH IV FLUSH SCH ×4 (08:56→21:00)
[2016-11-09] MEDS: METOPROLOL SUCCINATE 50 MG EXTENDED RELEASE TAB PO SCH (09:00)
[2016-11-09] MEDS: metFORMIN HCL 500 MG TAB PO SCH ×2 (09:00→17:57)
--- NOTE | 2016-11-09 10:22 | PD.CAR.PN ---
CVT Progress Note CVT: POD #: 2 Subjective/Hospital Course: 61/ male recent dyspnea , SOB with exertion, seen by PCP and Dr Roblero , abnormal EKG, + CTA coronaries, Heart cath showed triple vessel disease, LM 60 % prox LAD 70% mid-distal LAD 90% diagonal 50%, circ 60%, OM 80% RCA 100% EF 60 % , pt was dc home post cath , and re-admitted for elective CABG PMH: CAD, DM type 2 on insulin, HTN, HLP, morbid obesity surgery : CABG x 3, SANDOVAL to LAD - fair, SVG to OM - fair, SVG to PDA - fair, L EVH 3500 crystalloid, 1400 cell saver, 700 urine 11/08 + 4 kg , chest tube 200cc/ 12 hrs + rub wean off insulin gtt, pt on insulin at home / add levemir BID start BB , add home BP meds as needed IS, OOB , ok to transfer to stepdown 11/09 + 5 kg on nasal cannula gentle diuresis pt had sudden c/o of chest pain , " I can't breathe , can't talk " was repetitive still c/o of numbness right arm, per PT noticed change in pupil size on left yesterday had weakness and numbness both arms, left has improved also c/o of left hip pain speech is clear , personnel coordinator equal , lifted both legs off the bed / discussed with Dr Roth amlodipine added / 13:[address] Roth, will order CT Brain without contrast, pt now up in chair feels better, states pupils equal at home , right arm numbness improving left pupil remains larger than right Objective: GENERAL: SKIN: Warm and dry./ prevena to chest / incision to leg intact HEAD: Normocephalic. EYES: No scleral icterus. No injection or drainage. NECK: Supple, trachea midline. No JVD or lymphadenopathy. CARDIOVASCULAR: Regular rate and rhythm without murmurs, gallops, or rubs. + edema +2 lower ext / some swelling both hands RESPIRATORY: Breath sounds equal bilaterally. No accessory muscle use. chest tube no air leak, drained 230cc/ 12 hrs GASTROINTESTINAL: Abdomen soft, non-tender, nondistended. / obese MUSCULOSKELETAL: No cyanosis, or edema. BACK: Nontender without obvious deformity. No CVA tenderness. Neuro : no ptsosis, facial symmetry , left pupil 4mm, right 2.5 both reactive no visual disturbance per pt, no change in peripheral rizo / 5/5 both lower ext, 5/5 upper ext Vital Signs Date Time Temp Pulse Resp B/P Pulse Ox O2 Delivery O2 Flow Rate FiO2 11/09/16 07:33 92 Nasal Cannula 2.00 11/09/16 06:26 20 11/09/16 03:00 95 Nasal Cannula 2.00 11/09/16 03:00 97.9 88 18 140/69 95 11/09/16 03:00 82 11/08/16 23:00 91 11/08/16 23:00 94 Nasal Cannula 2.00 11/08/16 23:00 98.1 91 20 117/68 94 11/08/16 20:20 Nasal Cannula 2.00 11/08/16 19:00 92 Nasal Cannula 2.00 11/08/16 19:00 84 11/08/16 19:00 97.9 84 20 118/62 92 11/08/16 16:00 96 Nasal Cannula 2.00 11/08/16 16:00 98.0 85 18 117/68 96 Arterial Line 11/08/16 16:00 85 11/08/16 11:00 96 Nasal Cannula 2.00 11/08/16 11:00 97.8 82 18 68/67 96 11/08/16 11:00 82 Labs: Laboratory Tests Test 11/09/16 04:34 White Blood Count 12.3 TH/MM3 (4.0-11.0) Red Blood Count 3.50 MIL/MM3 (4.50-5.90) Hemoglobin 8.7 GM/DL (13.0-17.0) Hematocrit 27.7 % (39.0-51.0) Mean Corpuscular Volume 79.0 FL (80.0-100.0) Mean Corpuscular Hemoglobin 24.9 PG (27.0-34.0) Mean Corpuscular Hemoglobin 31.5 % Concent (32.0-36.0) Red Cell Distribution Width 18.0 % (11.6-17.2) Platelet Count 147 TH/MM3 (150-450) Mean Platelet Volume 9.4 FL (7.0-11.0) Neutrophils (%) (Auto) 79.3 % (16.0-70.0) Lymphocytes (%) (Auto) 6.9 % (9.0-44.0) Monocytes (%) (Auto) 13.4 % (0.0-8.0) Eosinophils (%) (Auto) 0.1 % (0.0-4.0) Basophils (%) (Auto) 0.3 % (0.0-2.0) Neutrophils # (Auto) 9.8 TH/MM3 (1.8-7.7) Lymphocytes # (Auto) 0.9 TH/MM3 (1.0-4.8) Monocytes # (Auto) 1.7 TH/MM3 (0-0.9) Eosinophils # (Auto) 0.0 TH/MM3 (0-0.4) Basophils # (Auto) 0.0 TH/MM3 (0-0.2) CBC Comment AUTO DIFF Differential Comment AUTO DIFF CONFIRMED Platelet Estimate NORMAL (NORMAL) Platelet Morphology Comment NORMAL (NORMAL) Sodium Level 138 MEQ/L (136-145) Potassium Level 4.5 MEQ/L (3.5-5.1) Chloride Level 102 MEQ/L (98-107) Carbon Dioxide Level 26.7 MEQ/L (21.0-32.0) Anion Gap 9 MEQ/L (5-15) Blood Urea Nitrogen 28 MG/DL (7-18) Creatinine 0.95 MG/DL (0.60-1.30) Estimat Glomerular Filtration 80 ML/MIN (>89) Rate Random Glucose 110 MG/DL (74-106) Calcium Level 8.1 MG/DL (8.5-10.1) Magnesium Level 2.4 MG/DL (1.5-2.5) Result Diagram: 11/09/16 0434 11/09/16 0434 Telemetry: NSR (1) CAD (coronary artery disease) (2) S/P CABG x 3 Plan: ASA, statin , BB bid diuresis control BP aggressive pulm toileting nebs , ezpap (3) Morbid obesity Plan: will need weight loss program with cardiac rehab (4) Diabetes mellitus Plan: levemir , 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
--- NOTE | 2016-11-09 12:10 | HHI.FF ---
Face to Face Verification Diagnosis: (1) Morbid obesity (2) CAD (coronary artery disease) (3) Hyperlipemia (4) Hypertension (5) S/P CABG x 3 Physical Therapy Order: Evaluate and Treat Home Health Nursing Order: Signs/symptoms of disease process Diabetic education Wound care and dressing changes Instructions: Heart and Vascular Surgery patients *Special attention to sternal dressing Mandatory frequency Assess and evaluation, 4 days in a row The next week 3X week 2 times a week for 4 weeks 1 time a week for 5 weeks Schedule Heart and Vascular patients for full 60 day certification period Initial visit Review Open Heart Surgery Discharge Instructions (Sternal precautions, Activity, Elastic hose, Incision care, Driving, Incentive spirometry, Smoking, [place], Work and other) Need Betadine to paint incision Medication reconciliation Importance of follow up care/ check on appointments Make calendar record temperature daily When to call [facility] nurse, review instructions, phone list Incentive Spirometry, demonstration Visit 1- Begin discharge instruction for patient family and/ or caregiver using teach back method- Signs and symptoms of infection Disease characteristics Medicines and side effects Foods and nutrition/ appetite Infection control/ hand washing/ hygiene Visit 2- Continue teaching Discharge instructions- include additional information on smoking cessation , sternal dressing (sternal vac) Visit 3- Continue teaching- Cough and deep breathing, incision monitoring. Choose my plate Visit 4- Continue teaching- Discuss limitations Discuss how they are feeling Discuss progress toward goals Remaining visits- continue teaching and monitoring PREVENA Single Use Negative Wound Therapy System Caregiver Instruction Sheet 1. A Prevena dressing system was applied to the chest incision during surgery , to promote wound healing. It works via a suction device (negative pressure wound therapy) to remove low to moderate levels of exudate (drainage) and infectious materials. We recommend that the device stay in place for up to seven days, from day of surgery. 2. Day of Surgery___/ Day of Removal ___11/13/16 3. The dressing should only be removed by a health caregivers non medical. Please arrange removal of device to coincide with Home Health visit and or with Nursing staff at Rehab 4. If skin reddening or irritation of skin occurs, or excessive drainage, please notify the Cardiovascular Surgeons office at [phone]. 5. Light showering is permissible; however the pump should be disconnected and placed in safe location, where it will not get wet. The dressing should not be exposed to direct spray or submerged in water. No bath tub / shower only. Ensure the end of the tubing attached to the dressing is facing down so that water does not enter the top of the tube. 6. To remove Prevena dressing: press purple button to turn off device / remove the suction. Then disconnect the tubing from the pump. The fixation strips should be stretched away from the skin and the dressing lifted at one corner and peeled back until it has been fully removed. 7. After removal, it is ok to shower daily using liquid dial soap and clean wash cloth, rinse and pat dry, and leave incision open to air dry. For any concerns regarding Prevena dressing, and or wounds, please contact Jessica Partida, patient navigator at [phone] or notify the Cardiovascular Surgeons office at [phone]. Incentive spirometry Q1 hr x 10, while awake, also use acapella device hourly whole awake Sternal Breast Bone Precautions: NO pushing or pulling, ( pt must use sternal pillow to support chest with all activities and with coughing ( takes up to 3 months breast bone to heal ) Daily incision care: ok to shower daily, no tub bath. Wash all incisions with liquid dial soap, clean wash cloth to each site, rinse and pat dry. Observe for any signs of infection, such as drainage which is dark yellow, triplett, green or foul smelling. Immediately report to the surgeon any drainage from the chest incision, or legs, and for any abnormal drainage from the chest tube sites. Notify surgeon if any temp >101.5 degrees F. When specialty dressing removed/ or if you do not have one, continue to shower daily as above, then rinse and pat incision dry and paint with betadine daily x 5 days. Allow steri strips to fall off if you have any. Avoid lotions, creams, salves, oils, etc. for the first month Please see attached forms for additional instructions regarding post Open Heart specialty wound vacuum dressings. CHAPO or Prevena , Dressing to be removed by Nursing staff on For Dr. Roth patients , please obtain CBC, BMP, PA & Lat CXR in 2 weeks, results to Dr. Roth ( prescription will be given) ( ) (Tele: [phone]) , F/U appointment: as per DC instructions: PCP in 2 weeks, CV surgeon 2 weeks, Automobile Engine Assembler 3-4 weeks For any questions regarding incisions/ dressing / meds / post op care or above Symptoms, Sunday 8am-5pm Heart & Vascular Surgery Office ( Dr. Reeves & Dr. Roth), After Hours / Nights (5pm -8am) Weekends and Holidays Please call [facility] ([facility]) Charge Nurse I have seen patient Urbano Bradley on 11/09/16. My clinical findings support the need for the requested home health care services because: Deconditioned w/ increased weakness I certify that my clinical findings support that this patient is homebound because: Post-op weakness Diamond Sky Nov 09, 2016 12:10
[2016-11-09] MEDS: SODIUM CHLORIDE 0.9% FLUSH 5 ML FLUSH IV FLUSH PRN (12:58)
[2016-11-09] MEDS: FUROSEMIDE 40 MG/4 ML VIAL IV PUSH SCH ×2 (12:58→17:58)
[2016-11-09] MEDS: FERROUS SULFATE 325 MG (65 MG ELEMENTAL IRON) TAB PO SCH ×2 (13:05→17:58)
[2016-11-09] MEDS: POTASSIUM CHLORIDE 10 MEQ CONTROLLED RELEASE TAB PO SCH ×2 (13:05→21:27)
[2016-11-09] MEDS ORDERED: AMIODARONE INJ 150 MG in DEXTROSE 5% IN WATER 100ML INJ 97 ML IV ONE ×2 (14:15)
--- NOTE | 2016-11-09 16:04 | RADRPT ---
EXAM DATE/TIME: 11/09/2016 15:43 [place] COMPARISON: No previous studies available for comparison. INDICATIONS : Right hand numbness left pupil dialated, status post heart surgery. RADIATION DOSE: 47.37 CTDIvol (mGy) MEDICAL HISTORY : Hypertension. diabetes SURGICAL HISTORY : CABG ENCOUNTER: Initial ACUITY: 1 day PAIN SCALE: 0/10 LOCATION: cranial TECHNIQUE: Multiple contiguous axial images were obtained of the head. Using automated exposure control and adj ustment of the mA and/or kV according to patient size, radiation dose was kept as low as reasonably a chievable to obtain optimal diagnostic quality images. FINDINGS: CEREBRUM: The ventricles are normal for age. No evidence of midline shift, mass lesion, hemorrhage or acute in farction. No extra-axial fluid collections are seen. POSTERIOR FOSSA: The cerebellum and brainstem are intact. The 4th ventricle is midline. The cerebellopontine angle i s unremarkable. EXTRACRANIAL: The visualized portion of the orbits is intact. SKULL: The calvaria is intact. No evidence of skull fracture. CONCLUSION: Unremarkable exam for age. Urbano Isaac MD on November 09, 2016 at 16:01 Board Certified Radiologist. This report was verified electronically.
[2016-11-09] MEDS: AMIODARONE INJ 450 MG in DEXTROSE 5% IN WATE(EXCEL) INJ 241 ML IV SCH ×2 (16:37)
[2016-11-09] MEDS: PRAVASTATIN SOD 80 MG TAB PO SCH (21:27)
[2016-11-10] VITALS (22 sets, daily range): BP systolic 113–144; BP diastolic 61–76; PULSE 72–122; RESP 22–24; TEMP 97.5–98.4; O2SAT 92–97
[2016-11-10] MEDS: AMIODARONE INJ 450 MG in DEXTROSE 5% IN WATE(EXCEL) INJ 241 ML IV SCH ×2 (00:34)
[2016-11-10] MEDS: PANTOPRAZOLE SOD 40 MG DELAYED RELEASE TAB PO SCH (05:40)
[2016-11-10] MEDS: INSULIN ASPART SUPPLEMENTAL SCALE SQ SCH ×4 (06:09→22:23)
[2016-11-10 06:46] LABS: AUTOMATED NEUTROPHIL # 7.5 TH/MM3 (1.8-7.7); BASOPHIL % 0.3 % (0.0-2.0); EOSINOPHIL % 0.3 % (0.0-4.0); HEMATOCRIT 26.4 % (39.0-51.0); HEMO FLAGS DIFF FINAL; MEAN CELL VOLUME 78.3 FL (80.0-100.0); MEAN CORPUSCULAR HEMOGLOBIN 25.2 PG (27.0-34.0); MEAN CORPUSCULAR HGB CONC 32.2 % (32.0-36.0); MONO % 14.2 % (0.0-8.0); NEUT % 75.2 % (16.0-70.0); PLATELET COUNT 137 TH/MM3 (150-450); RED BLOOD COUNT 3.37 MIL/MM3 (4.50-5.90); RED CELL DISTRIBUTION WIDTH 17.4 % (11.6-17.2)
[2016-11-10 06:49] LABS: BICARBONATE 30.6 MEQ/L (21.0-32.0); MAGNESIUM 2.3 MG/DL (1.5-2.5); POTASSIUM 4.5 MEQ/L (3.5-5.1)
[2016-11-10] MEDS: RESP: ALBUTEROL 2.5 MG/IPRATROPIUM 0.5 MG NEB (SCH) NEB (07:18)
[2016-11-10] MEDS: oxyCODONE/ACETAMINOPHEN 5 MG/325 MG TAB PO PRN ×3 (07:45→17:24)
[2016-11-10] MEDS: SODIUM CHLORIDE 0.9% FLUSH 5 ML FLUSH IV FLUSH SCH ×4 (09:00→22:24)
[2016-11-10] MEDS: metFORMIN HCL 500 MG TAB PO SCH ×2 (09:00→16:54)
[2016-11-10] MEDS: PIOGLITAZONE HCL 30 MG TAB PO SCH (09:00)
[2016-11-10] MEDS: POLYETHYLENE GLYCOL 17 GM PKG PO SCH (09:30)
[2016-11-10] MEDS: POTASSIUM CHLORIDE 10 MEQ CONTROLLED RELEASE TAB PO SCH ×2 (09:31→22:23)
[2016-11-10] MEDS: DOCUSATE SODIUM 100 MG CAP PO SCH ×2 (09:31→22:23)
[2016-11-10] MEDS: MULTIVITAMINS/MINERALS THERAPEUTIC TAB PO SCH (09:31)
[2016-11-10] MEDS: ASPIRIN 81 MG CHEW TAB PO SCH (09:31)
[2016-11-10] MEDS: METOPROLOL SUCCINATE 50 MG EXTENDED RELEASE TAB PO SCH (09:31)
[2016-11-10] MEDS: FUROSEMIDE 40 MG/4 ML VIAL IV PUSH SCH ×2 (09:32→16:54)
[2016-11-10] MEDS: INSULIN DETEMIR 100 UNITS/ML VIAL SQ SCH ×2 (09:33→21:00)
[2016-11-10] MEDS: VALSARTAN 160 MG TAB PO SCH (10:00)
--- NOTE | 2016-11-10 10:49 | PD.CAR.PN ---
CVT Progress Note CVT: POD #: 3 Subjective/Hospital Course: 61/ male recent dyspnea , SOB with exertion, seen by PCP and Dr Roblero , abnormal EKG, + CTA coronaries, Heart cath showed triple vessel disease, LM 60 % prox LAD 70% mid-distal LAD 90% diagonal 50%, circ 60%, OM 80% RCA 100% EF 60 % , pt was dc home post cath , and re-admitted for elective CABG PMH: CAD, DM type 2 on insulin, HTN, HLP, morbid obesity surgery : CABG x 3, SANDOVAL to LAD - fair, SVG to OM - fair, SVG to PDA - fair, L EVH 3500 crystalloid, 1400 cell saver, 700 urine 11/08 + 4 kg , chest tube 200cc/ 12 hrs + rub wean off insulin gtt, pt on insulin at home / add levemir BID start BB , add home BP meds as needed IS, OOB , ok to transfer to stepdown 11/09 + 5 kg on nasal cannula gentle diuresis pt had sudden c/o of chest pain , " I can't breathe , can't talk " was repetitive still c/o of numbness right arm, per PT noticed change in pupil size on left yesterday had weakness and numbness both arms, left has improved also c/o of left hip pain speech is clear , research consultant equal , lifted both legs off the bed / discussed with Dr Roth amlodipine added / 13:[address] Roth, will order CT Brain without contrast, pt now up in chair feels better, states pupils equal at home , right arm numbness improving left pupil remains larger than right 11/10 went into majo rvr yesterday, on amiodarone gtt, now converted to NSR change to po amiodarone CT Brain neg, pupils equal and reactive, no neuro deficits will eval for removal fo chest tubes today continue ambulation / pulm toileting Objective: GENERAL: SKIN: Warm and dry.prevena to chest incision intact to leg HEAD: Normocephalic. EYES: No scleral icterus. No injection or drainage. NECK: Supple, trachea midline. No JVD or lymphadenopathy. CARDIOVASCULAR: Regular rate and rhythm without murmurs, gallops, or rubs. mild general edema RESPIRATORY: Breath sounds equal bilaterally. No accessory muscle use. chest tube drained 150/12 hr eval for removal later today GASTROINTESTINAL: Abdomen soft, non-tender, nondistended. MUSCULOSKELETAL: No cyanosis, or edema. BACK: Nontender without obvious deformity. No CVA tenderness. Vital Signs Date Time Temp Pulse Resp B/P Pulse Ox O2 Delivery O2 Flow Rate FiO2 11/10/16 07:23 92 Nasal Cannula 2.00 11/10/16 07:00 90 11/10/16 07:00 Nasal Cannula 2.00 11/10/16 07:00 97.5 89 144/67 94 11/10/16 06:00 84 11/10/16 05:00 83 11/10/16 04:00 106 11/10/16 03:00 Nasal Cannula 2.00 40 11/10/16 03:00 125/76 97 11/10/16 03:00 82 11/10/16 02:00 82 11/10/16 01:00 104 11/10/16 00:00 122 11/09/16 23:00 122 11/09/16 23:00 97.7 105 111/67 92 11/09/16 23:00 Nasal Cannula 2.00 11/09/16 22:00 97 11/09/16 21:00 95 11/09/16 20:38 Nasal Cannula 2.00 11/09/16 20:00 97 11/09/16 19:00 130 11/09/16 19:00 97.8 97 135/64 92 11/09/16 19:00 Nasal Cannula 2.00 11/09/16 16:00 95 Nasal Cannula 2.00 11/09/16 16:00 97.8 133 22 102/58 95 11/09/16 15:21 132 11/09/16 12:33 97 Nasal Cannula 2.00 11/09/16 12:33 97.7 101 20 143/70 97 11/09/16 11:50 100 Labs: Laboratory Tests Test 11/10/16 05:45 White Blood Count 10.0 TH/MM3 (4.0-11.0) Red Blood Count 3.37 MIL/MM3 (4.50-5.90) Hemoglobin 8.5 GM/DL (13.0-17.0) Hematocrit 26.4 % (39.0-51.0) Mean Corpuscular Volume 78.3 FL (80.0-100.0) Mean Corpuscular Hemoglobin 25.2 PG (27.0-34.0) Mean Corpuscular Hemoglobin 32.2 % Concent (32.0-36.0) Red Cell Distribution Width 17.4 % (11.6-17.2) Platelet Count 137 TH/MM3 (150-450) Mean Platelet Volume 10.0 FL (7.0-11.0) Neutrophils (%) (Auto) 75.2 % (16.0-70.0) Lymphocytes (%) (Auto) 10.0 % (9.0-44.0) Monocytes (%) (Auto) 14.2 % (0.0-8.0) Eosinophils (%) (Auto) 0.3 % (0.0-4.0) Basophils (%) (Auto) 0.3 % (0.0-2.0) Neutrophils # (Auto) 7.5 TH/MM3 (1.8-7.7) Lymphocytes # (Auto) 1.0 TH/MM3 (1.0-4.8) Monocytes # (Auto) 1.4 TH/MM3 (0-0.9) Eosinophils # (Auto) 0.0 TH/MM3 (0-0.4) Basophils # (Auto) 0.0 TH/MM3 (0-0.2) CBC Comment DIFF FINAL Differential Comment Sodium Level 139 MEQ/L (136-145) Potassium Level 4.5 MEQ/L (3.5-5.1) Chloride Level 103 MEQ/L (98-107) Carbon Dioxide Level 30.6 MEQ/L (21.0-32.0) Anion Gap 5 MEQ/L (5-15) Blood Urea Nitrogen 28 MG/DL (7-18) Creatinine 0.77 MG/DL (0.60-1.30) Estimat Glomerular Filtration 102 ML/MIN Rate (>89) Random Glucose 134 MG/DL (74-106) Calcium Level 8.3 MG/DL (8.5-10.1) Phosphorus Level 2.4 MG/DL (2.5-4.9) Magnesium Level 2.3 MG/DL (1.5-2.5) Thyroid Stimulating Hormone 0.958 uIU/ML 3rd Gen (0.358-3.740) Result Diagram: 11/10/1654411/10/16544 Telemetry: NSR (1) CAD (coronary artery disease) (2) S/P CABG x 3 Plan: ASA, statin , BB bid diuresis control BP aggressive pulm toileting nebs , ezpap (3) Morbid obesity Plan: will need weight loss program with cardiac rehab (4) Diabetes mellitus Plan: increase levemir , 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 TIA Plan: CT Brain neg/ no neuro deficits, will start plavix will need outpt f/u US carotids noted, 50-70% bilaterally Diamond Sky Nov 10, 2016 10:49
[2016-11-10] MEDS: FERROUS SULFATE 325 MG (65 MG ELEMENTAL IRON) TAB PO SCH ×2 (11:36→16:55)
[2016-11-10] MEDS: AMIODARONE 200 MG TAB PO SCH ×2 (11:56→22:24)
[2016-11-10] MEDS: PRAVASTATIN SOD 80 MG TAB PO SCH (22:23)
--- NOTE | 2016-11-10 22:55 | EKG ---
Date Performed: 11/09/2016 Time Performed: 14:45:48 PTAGE: 61 years EKG: Atrial fibrillation with rapid ventricular response Possible inferior infarct - age undeter mined Anterolateral ST-T changes may be due to myocardial ischemia Low QRS voltages in precordial pineda ds Abnormal ECG PREVIOUS TRACING : 11/08/2016 03.18 DOCTOR: Aureliano Caicedo Interpretating Date/Time 11/10/2016 22:48:54
[2016-11-11] VITALS (26 sets, daily range): BP systolic 88–135; BP diastolic 53–69; PULSE 66–87; RESP 18–20; TEMP 97.8–98.3; O2SAT 93–96
[2016-11-11] MEDS: oxyCODONE/ACETAMINOPHEN 5 MG/325 MG TAB PO PRN ×2 (00:10→22:50)
[2016-11-11] MEDS: PANTOPRAZOLE SOD 40 MG DELAYED RELEASE TAB PO SCH (06:15)
[2016-11-11] MEDS: INSULIN ASPART SUPPLEMENTAL SCALE SQ SCH ×4 (06:15→21:00)
--- NOTE | 2016-11-11 08:35 | PD.CAR.PN ---
CVT Progress Note Subjective/Hospital Course: 61/ male recent dyspnea , SOB with exertion, seen by PCP and Dr Roblero , abnormal EKG, + CTA coronaries, Heart cath showed triple vessel disease, LM 60 % prox LAD 70% mid-distal LAD 90% diagonal 50%, circ 60%, OM 80% RCA 100% EF 60 % , pt was dc home post cath , and re-admitted for elective CABG PMH: CAD, DM type 2 on insulin, HTN, HLP, morbid obesity surgery : CABG x 3, SANDOVAL to LAD - fair, SVG to OM - fair, SVG to PDA - fair, L EVH 3500 crystalloid, 1400 cell saver, 700 urine 11/08 + 4 kg , chest tube 200cc/ 12 hrs + rub wean off insulin gtt, pt on insulin at home / add levemir BID start BB , add home BP meds as needed IS, OOB , ok to transfer to stepdown 11/09 + 5 kg on nasal cannula gentle diuresis pt had sudden c/o of chest pain , " I can't breathe , can't talk " was repetitive still c/o of numbness right arm, per PT noticed change in pupil size on left yesterday had weakness and numbness both arms, left has improved also c/o of left hip pain speech is clear , 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 , lifted both legs off the bed / discussed with Dr Roth amlodipine added / 13:[address] Roth, will order CT Brain without contrast, pt now up in chair feels better, states pupils equal at home , right arm numbness improving left pupil remains larger than right 11/10 went into [facility] yesterday, on amiodarone gtt, now converted to NSR change to po amiodarone CT Brain neg, pupils equal and reactive, no neuro deficits will eval for removal fo chest tubes today continue ambulation / pulm toileting 11/11 D/C CT Discharge planning Objective: Vital Signs Date Time Temp Pulse Resp B/P Pulse Ox O2 Delivery O2 Flow Rate FiO2 11/11/16 08:15 77 11/11/16 07:56 80 11/11/16 07:56 98.2 74 18 118/64 96 11/11/16 07:56 96 Room Air 11/11/16 06:00 66 11/11/16 05:00 75 11/11/16 04:00 77 11/11/16 03:00 96 Room Air 11/11/16 03:00 98.3 76 18 135/69 96 11/11/16 03:00 77 11/11/16 02:00 86 11/11/16 01:00 87 11/11/16 00:00 86 11/10/16 23:00 95 Room Air 11/10/16 23:00 81 11/10/16 23:00 98.1 82 24 121/70 96 11/10/16 22:00 108 11/10/16 21:00 108 11/10/16 20:00 109 11/10/16 19:00 96 Room Air 11/10/16 19:00 98.4 108 22 113/61 96 11/10/16 19:00 111 11/10/16 18:14 80 11/10/16 17:00 80 11/10/16 16:12 83 11/10/16 15:07 84 11/10/16 15:07 Nasal Cannula 2.00 11/10/16 15:07 98.4 81 124/73 94 11/10/16 14:00 72 11/10/16 13:00 75 11/10/16 12:00 73 11/10/16 11:00 84 11/10/16 11:00 98.4 84 129/64 94 11/10/16 11:00 Nasal Cannula 2.00 Result Diagram: 11/10/16 0545 11/10/16 0545 (1) CAD (coronary artery disease) (2) S/P CABG x 3 Plan: ASA, statin , BB bid diuresis control BP aggressive pulm toileting nebs , ezpap (3) Morbid obesity Plan: will need weight loss program with cardiac rehab (4) Diabetes mellitus Plan: increase levemir , metformin 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 TIA Plan: CT Brain neg/ no neuro deficits, will start plavix will need outpt f/u US carotids noted, 50-70% bilaterally Maya Reeves MD Nov 11, 2016 08:35
[2016-11-11] MEDS: POLYETHYLENE GLYCOL 17 GM PKG PO SCH (08:56)
[2016-11-11] MEDS: SODIUM CHLORIDE 0.9% FLUSH 5 ML FLUSH IV FLUSH SCH ×4 (08:56→21:27)
[2016-11-11] MEDS: MULTIVITAMINS/MINERALS THERAPEUTIC TAB PO SCH (09:08)
[2016-11-11] MEDS: AMIODARONE 200 MG TAB PO SCH ×2 (09:08→21:27)
[2016-11-11] MEDS: VALSARTAN 160 MG TAB PO SCH (09:08)
[2016-11-11] MEDS: FUROSEMIDE 40 MG/4 ML VIAL IV PUSH SCH ×2 (09:08→16:55)
[2016-11-11] MEDS: PIOGLITAZONE HCL 30 MG TAB PO SCH (09:09)
[2016-11-11] MEDS: metFORMIN HCL 500 MG TAB PO SCH ×2 (09:09→16:55)
[2016-11-11] MEDS: POTASSIUM CHLORIDE 10 MEQ CONTROLLED RELEASE TAB PO SCH ×2 (09:09→21:27)
[2016-11-11] MEDS: ASPIRIN 81 MG CHEW TAB PO SCH (09:10)
[2016-11-11] MEDS: DOCUSATE SODIUM 100 MG CAP PO SCH ×2 (09:10→21:27)
[2016-11-11] MEDS: METOPROLOL SUCCINATE 50 MG EXTENDED RELEASE TAB PO SCH (09:11)
[2016-11-11] MEDS: INSULIN DETEMIR 100 UNITS/ML VIAL SQ SCH ×2 (09:11→21:00)
[2016-11-11] MEDS: FERROUS SULFATE 325 MG (65 MG ELEMENTAL IRON) TAB PO SCH ×2 (12:00→16:55)
[2016-11-11] MEDS: CLOPIDOGREL 75 MG TAB PO SCH (12:29)
[2016-11-11] MEDS: PRAVASTATIN SOD 80 MG TAB PO SCH (21:27)
[2016-11-12] VITALS (25 sets, daily range): BP systolic 103–138; BP diastolic 57–79; PULSE 66–102; RESP 17–20; TEMP 97.7–98.2; O2SAT 92–96
[2016-11-12] MEDS: PANTOPRAZOLE SOD 40 MG DELAYED RELEASE TAB PO SCH (05:30)
[2016-11-12] MEDS: INSULIN ASPART SUPPLEMENTAL SCALE SQ SCH ×4 (05:30→21:00)
[2016-11-12] MEDS: oxyCODONE/ACETAMINOPHEN 5 MG/325 MG TAB PO PRN ×2 (06:26→21:22)
[2016-11-12] MEDS: metFORMIN HCL 500 MG TAB PO SCH ×2 (08:25→17:34)
[2016-11-12] MEDS: FUROSEMIDE 40 MG/4 ML VIAL IV PUSH SCH ×2 (08:25→17:35)
[2016-11-12] MEDS: INSULIN DETEMIR 100 UNITS/ML VIAL SQ SCH ×3 (08:25→21:21)
[2016-11-12] MEDS: POLYETHYLENE GLYCOL 17 GM PKG PO SCH (08:25)
[2016-11-12] MEDS: DOCUSATE SODIUM 100 MG CAP PO SCH ×2 (08:26→21:21)
[2016-11-12] MEDS: CLOPIDOGREL 75 MG TAB PO SCH (08:26)
[2016-11-12] MEDS: PIOGLITAZONE HCL 30 MG TAB PO SCH (08:26)
[2016-11-12] MEDS: METOPROLOL SUCCINATE 50 MG EXTENDED RELEASE TAB PO SCH (08:26)
[2016-11-12] MEDS: VALSARTAN 160 MG TAB PO SCH (08:26)
[2016-11-12] MEDS: SODIUM CHLORIDE 0.9% FLUSH 5 ML FLUSH IV FLUSH SCH ×4 (08:27→21:00)
[2016-11-12] MEDS: POTASSIUM CHLORIDE 10 MEQ CONTROLLED RELEASE TAB PO SCH ×2 (08:27→21:22)
[2016-11-12] MEDS: AMIODARONE 200 MG TAB PO SCH ×2 (08:27→21:22)
[2016-11-12] MEDS: ASPIRIN 81 MG CHEW TAB PO SCH (08:27)
[2016-11-12] MEDS: MULTIVITAMINS/MINERALS THERAPEUTIC TAB PO SCH (08:27)
--- NOTE | 2016-11-12 10:37 | PD.CAR.PN ---
CVT Progress Note Subjective/Hospital Course: 61/ male recent dyspnea , SOB with exertion, seen by PCP and Dr Roblero , abnormal EKG, + CTA coronaries, Heart cath showed triple vessel disease, LM 60 % prox LAD 70% mid-distal LAD 90% diagonal 50%, circ 60%, OM 80% RCA 100% EF 60 % , pt was dc home post cath , and re-admitted for elective CABG PMH: CAD, DM type 2 on insulin, HTN, HLP, morbid obesity surgery : CABG x 3, SANDOVAL to LAD - fair, SVG to OM - fair, SVG to PDA - fair, L EVH 3500 crystalloid, 1400 cell saver, 700 urine 11/08 + 4 kg , chest tube 200cc/ 12 hrs + rub wean off insulin gtt, pt on insulin at home / add levemir BID start BB , add home BP meds as needed IS, OOB , ok to transfer to stepdown 11/09 + 5 kg on nasal cannula gentle diuresis pt had sudden c/o of chest pain , " I can't breathe , can't talk " was repetitive still c/o of numbness right arm, per PT noticed change in pupil size on left yesterday had weakness and numbness both arms, left has improved also c/o of left hip pain speech is clear , pcts equal , lifted both legs off the bed / discussed with Dr Roth amlodipine added / 13:[address] Roth, will order CT Brain without contrast, pt now up in chair feels better, states pupils equal at home , right arm numbness improving left pupil remains larger than right 11/10 went into [facility] yesterday, on amiodarone gtt, now converted to NSR change to po amiodarone CT Brain neg, pupils equal and reactive, no neuro deficits will eval for removal fo chest tubes today continue ambulation / pulm toileting 11/11 D/C CT Discharge planning 11/12 Awaiting rehab eval Objective: Vital Signs Date Time Temp Pulse Resp B/P Pulse Ox O2 Delivery O2 Flow Rate FiO2 11/12/16 07:38 94 21 11/12/16 07:00 97.7 72 17 134/68 96 11/12/16 07:00 96 Room Air 11/12/16 05:00 71 11/12/16 04:00 98.2 70 20 138/76 96 11/12/16 04:00 Room Air 11/12/16 04:00 72 11/12/16 03:00 66 11/12/16 02:00 67 11/12/16 01:00 68 11/12/16 00:00 Nasal Cannula 2.00 11/12/16 00:00 98.1 72 18 108/63 92 11/12/16 00:00 74 11/11/16 23:00 75 11/11/16 22:00 75 11/11/16 21:00 76 11/11/16 20:00 75 11/11/16 20:00 Room Air 11/11/16 20:00 97.8 75 20 112/55 94 11/11/16 19:00 75 11/11/16 18:34 75 11/11/16 17:08 70 11/11/16 17:06 93 21 11/11/16 16:28 74 11/11/16 15:00 96 Room Air 11/11/16 15:00 98.2 76 18 110/58 96 11/11/16 15:00 71 11/11/16 14:00 73 11/11/16 13:00 75 11/11/16 12:24 73 11/11/16 11:56 98.2 75 18 88/53 96 11/11/16 11:00 96 Room Air 11/11/16 11:00 80 Result Diagram: 11/10/16 0545 11/10/16 0545 (1) CAD (coronary artery disease) (2) S/P CABG x 3 Plan: ASA, statin , BB bid diuresis control BP aggressive pulm toileting nebs , ezpap (3) Morbid obesity Plan: will need weight loss program with cardiac rehab (4) Diabetes mellitus Plan: increase levemir , metformin 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 TIA Plan: CT Brain neg/ no neuro deficits, will start plavix will need outpt f/u US carotids noted, 50-70% bilaterally Maya Reeves MD Nov 12, 2016 10:37
[2016-11-12] MEDS: FERROUS SULFATE 325 MG (65 MG ELEMENTAL IRON) TAB PO SCH ×2 (11:58→17:34)
[2016-11-12] MEDS: SODIUM CHLORIDE 0.9% FLUSH 5 ML FLUSH IV FLUSH PRN (17:35)
[2016-11-12] MEDS: PRAVASTATIN SOD 80 MG TAB PO SCH (21:21)
[2016-11-13] VITALS (11 sets, daily range): BP systolic 94–133; BP diastolic 50–65; PULSE 68–77; RESP 18–20; TEMP 97.8–98.5; O2SAT 93–96
[2016-11-13] MEDS: oxyCODONE/ACETAMINOPHEN 5 MG/325 MG TAB PO PRN (06:14)
[2016-11-13] MEDS: INSULIN ASPART SUPPLEMENTAL SCALE SQ SCH ×2 (06:14→12:07)
[2016-11-13] MEDS: PANTOPRAZOLE SOD 40 MG DELAYED RELEASE TAB PO SCH (06:14)
[2016-11-13] MEDS: AMIODARONE 200 MG TAB PO SCH (10:09)
[2016-11-13] MEDS: CLOPIDOGREL 75 MG TAB PO SCH (10:10)
[2016-11-13] MEDS: POTASSIUM CHLORIDE 10 MEQ CONTROLLED RELEASE TAB PO SCH (10:10)
[2016-11-13] MEDS: PIOGLITAZONE HCL 30 MG TAB PO SCH (10:10)
[2016-11-13] MEDS: metFORMIN HCL 500 MG TAB PO SCH (10:10)
[2016-11-13] MEDS: ASPIRIN 81 MG CHEW TAB PO SCH (10:11)
[2016-11-13] MEDS: DOCUSATE SODIUM 100 MG CAP PO SCH (10:11)
[2016-11-13] MEDS: MULTIVITAMINS/MINERALS THERAPEUTIC TAB PO SCH (10:11)
[2016-11-13] MEDS: METOPROLOL SUCCINATE 50 MG EXTENDED RELEASE TAB PO SCH (10:11)
[2016-11-13] MEDS: VALSARTAN 160 MG TAB PO SCH (10:11)
[2016-11-13] MEDS: FUROSEMIDE 40 MG/4 ML VIAL IV PUSH SCH (10:12)
[2016-11-13] MEDS: SODIUM CHLORIDE 0.9% FLUSH 5 ML FLUSH IV FLUSH SCH (10:19)
[2016-11-13] MEDS: INSULIN DETEMIR 100 UNITS/ML VIAL SQ SCH (12:44)
[2016-11-13] MEDS: FERROUS SULFATE 325 MG (65 MG ELEMENTAL IRON) TAB PO SCH (12:44)
[2016-11-13] MEDS ORDERED: PLAV75TA29 PO (13:02)
[2016-11-13] MEDS ORDERED: DIOV160T6 PO (13:02)
[2016-11-13] MEDS ORDERED: FURO1TAB60 PO (13:02)
[2016-11-13] MEDS ORDERED: DOCU1CAP39 PO (13:02)
[2016-11-13] MEDS ORDERED: FERR325T PO (13:02)
[2016-11-13] MEDS ORDERED: AMIO200T PO (13:02)
[2016-11-13] MEDS ORDERED: POTA-163 PO (13:02)
[2016-11-13] MEDS ORDERED: LEVEMIR SQ (13:03)
[2016-11-13] MEDS ORDERED: NOVORP2 SQ (13:04)
--- NOTE | 2016-11-13 13:17 | HHI.DS ---
Discharge Summary Admission Date Nov 07, 2016 at 05:16 Discharge Date: Nov 13, 2016 Admitting Diagnosis dyspnea, abnormal ECG (1) S/P CABG x 3 Diagnosis: Secondary (2) CAD (coronary artery disease) Diagnosis: Principal (3) Morbid obesity Diagnosis: Principal (4) Diabetes mellitus Diagnosis: Principal (5) Hyperlipemia Diagnosis: Principal (6) Hypertension Diagnosis: Principal (7) ? TIA Diagnosis: Secondary (8) chronic lower ext edema Diagnosis: Principal Procedures CABG x 3 11/07 SANDOVAL to LAD - fair SVG to OM - fair SVG to PDA - fair EVH Brief History 61/ male recent dyspnea , SOB with exertion, seen by PCP and Dr Roblero , abnormal EKG, + CTA coronaries, Heart cath showed triple vessel disease, LM 60 % prox LAD 70% mid-distal LAD 90% diagonal 50%, circ 60%, OM 80% RCA 100% EF 60 % , pt was dc home post cath , and re-admitted for elective CABG PMH: CAD, DM type 2 on insulin, HTN, HLP, morbid obesity surgery : CABG x 3, SANDOVAL to LAD - fair, SVG to OM - fair, SVG to PDA - fair, L EVH 3500 crystalloid, 1400 cell saver, 700 urine CBC/BMP: 11/10/16 0545 11/10/16 0545 Imaging Last Impressions Head CT 11/09/16 0000 Signed Impressions: Service Date/Time: October 15:43 - CONCLUSION: Unremarkable exam for age. Urbano Isaac MD Chest X-Ray 11/08/16 0500 Signed Impressions: Service Date/Time: Tuesday, November 08, 2016 05:21 - CONCLUSION: Interval extubation. Improved aeration. Jay Mcdonnell MD PE at Discharge GENERAL: SKIN: Warm and dry. sternal incision intact and well approximated, leg incision intact HEAD: Normocephalic. EYES: No scleral icterus. No injection or drainage. NECK: Supple, trachea midline. No JVD or lymphadenopathy. CARDIOVASCULAR: Regular rate and rhythm without murmurs, gallops, or rubs. + 2-3 edema lower ext , chronic skin changes, prior hx of bilateral cellulitis RESPIRATORY: Breath sounds equal bilaterally. No accessory muscle use. GASTROINTESTINAL: Abdomen soft, non-tender, nondistended./ obese MUSCULOSKELETAL: No cyanosis, or edema. BACK: Nontender without obvious deformity. No CVA tenderness. 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 , lifted both legs off the bed / discussed with Dr Roth amlodipine added / 13:[address] Roth, will order CT Brain without contrast, pt now up in chair feels better, states pupils equal at home , right arm numbness improving left pupil remains larger than right 11/10 went into [facility] yesterday, on amiodarone gtt, now converted to NSR change to po amiodarone CT Brain neg, pupils equal and reactive, no neuro deficits will eval for removal fo chest tubes today continue ambulation / pulm toileting 11/11 D/C CT Discharge planning 11/12 Awaiting rehab eval 11/13 remains in NSR continue diuresis , chronic lower ext edema / needs to keep legs elevated as much as possible elbert hose ill-fitting, eval for larger size, or wear his own diabetic socks stable for dc to rehab, when bed available Pt Condition on Discharge: Good Discharge Disposition: Rehab Inpatient Discharge Instructions DIET: Follow Instructions for: Diabetic Diet Additional Diet Instructions: low NA diet Activities you can perform: Full Weight Bearing, Shower Only-No Bath Activities to avoid: Strenuous Activity, Driving Additional Activity Instructio: no lifting > 8 lbs or gallon of milk elevate legs at all times when possible thigh high elbert hose, or pt can use his diabetic socks for compression Follow up Referrals: Appointment for Follow Up - 11/24/16 with Rhonda Roth MD Cardiology - 12/08/16 with Azam Roblero MD PCP Follow-up - 11/24/16 with Chava Monzon MD Vascular Surgery - 2 Weeks with Shahid Davis MD New Orders: BASIC METABOLIC PROF - 2 Weeks CBC NO DIFF - 2 Weeks X-RAY CHEST PA & LAT - 2 Weeks New Medications: Furosemide (Lasix) 40 Mg Tab 40 MG PO BID 40mg bid x 7 days, then 40mg daily / take with potassium edema # 60 Ref 0 TAB Insulin Detemir Inj (Levemir Inj) 1,000 unit/ 10 ML Vial 10 UNITS SQ BID Do not mix with any other Insulin. Blood Sugar Management #1 Ref 1 VIAL Insulin Human Regular Inj (Novolin R Inj) 1,000 Unit/10 Ml Vial 1-9 UNITS SQ ACHS Max dose at bedtime:( )units; sugars less than 70,(0) units; sugars 150-199,(1)unit; sugars 200-249,(3)units; sugars 250-299,(5) units; sugars 300-349,(7)units; sugars greater than 349,(9)units Blood Sugar Management #10 Ref 0 ML Potassium Chloride ER (Potassium Chloride ER) 20 Meq Tab 20 MEQ PO BID 20meq bid x 7 days, then 20meq daily with lasix Electrolyte Replacement #60 Ref 0 TAB Amiodarone (Amiodarone) 200 Mg Tab 400 MG PO Q12HR 400mg bid x 2 days, then 200mg bid x 5 days , then 200mg daily heart rhythm #40 Ref 2 TAB Clopidogrel (Plavix) 75 Mg Tab 75 MG PO DAILY Blood Clot Prevention #30 Ref 2 TAB Docusate Sodium (Dok) 100 Mg Cap 100 MG PO BID Constipation #60 CAP Ferrous Sulfate (Ferrous Sulfate) 325 Mg Tab 325 MG PO BID@12,17 anemia #60 Ref 0 TAB Valsartan (Diovan) 160 Mg Tab 160 MG PO DAILY Blood Pressure Management #30 Ref 1 TAB Continued Medications: Aspirin (Aspirin) 81 Mg Chew 81 MG CHEW DAILY Ref 0 TAB Metformin (Metformin) 1,000 Mg Tab 1000 MG PO BIDPC With meals Blood Sugar Management #60 Ref 0 TAB Metoprolol Succinate ER 24 HR (Metoprolol Succinate ER 24 HR) 50 Mg Tab 50 MG PO DAILY #30 Ref 0 TAB Pioglitazone (Pioglitazone) 30 Mg Tab 30 MG PO DAILY Blood Sugar Management #30 Ref 0 TAB Simvastatin (Simvastatin) 40 Mg Tab 40 MG PO HS Cholesterol Management #30 Ref 0 TAB Discontinued Medications: Amlodipine (Amlodipine) 10 Mg Tab 10 MG PO DAILY Blood Pressure Management #30 Ref 0 TAB Furosemide (Furosemide) 40 Mg Tab 40 MG PO DAILY #30 Ref 0 TAB Hydralazine (Hydralazine) 50 Mg Tab 50 MG PO TID Take with a meal Blood Pressure Management Ref 0 TAB Insulin Aspart Inj (Novolog Inj) 1,000 Unit/10 Ml Vial 20 UNITS SQ DIRECTED sliding scale 3 times a day dose varies Blood Sugar Management #10 Ref 0 ML Insulin Degludec Inj (Tresiba Flextouch Pen Inj) 300 unit/3 ML Pen 160 UNITS SQ DAILY Blood Sugar Management #15 Ref 0 ML Liraglutide Inj (Victoza Inj) 18 Mg/3 Ml Pen 0.6 MG SQ DAILY #1 Ref 0 PEN Valsartan-Hydrochlorothiazide (Valsartan-Hydrochlorothiazide) 320-25 Mg Tab 1 TAB PO DAILY Blood Pressure Management #30 Ref 0 TAB Diamond Sky Nov 13, 2016 13:17
[2016-11-21] MEDS ORDERED: rolling walker (15:19)
[2016-11-23] MEDS ORDERED: CEPH500C PO (08:32)
[2016-11-23] MEDS ORDERED: PANT40TA3 PO (08:32)
[2016-11-23] MEDS ORDERED: ASPI81CH CHEW (08:32)
[2016-11-23] MEDS ORDERED: THERTAB15 PO (08:32)
[2016-11-23] MEDS ORDERED: DIOV80TA4 PO (08:32)
[2016-11-23] MEDS ORDERED: PIOG30TA4 PO (08:32)
[2016-11-23] MEDS ORDERED: METF1000 PO (08:32)
[2016-11-23] MEDS ORDERED: AMIO200T PO (08:32)
[2016-11-23] MEDS ORDERED: PLAV75TA29 PO (08:32)
[2016-11-23] MEDS ORDERED: FERR325T PO (08:32)
[2016-11-23] MEDS ORDERED: DOCU1CAP39 PO (08:32)
[2016-11-23] MEDS ORDERED: POTA20TA5 PO (08:32)
[2016-11-23] MEDS ORDERED: FURO1TAB60 PO (08:32)
[2016-11-23] MEDS ORDERED: LEVEMIR SQ (08:32)
[2016-11-23] MEDS ORDERED: METO50TA11 PO (08:32)
[2016-11-23] MEDS ORDERED: SIMV40TA PO (08:32)
[2017-01-29] MEDS ORDERED: PLAV75TA29 PO (12:45)
[2017-01-29] MEDS ORDERED: POTA20TA5 PO (12:45)
[2017-01-29] MEDS ORDERED: DIOV80TA4 PO (12:45)
[2017-01-29] MEDS ORDERED: PANT40TA3 PO (12:45)
== END 2016-11-13 16:47 | DRG 236 ==
LOC: HSDI 11-07 05:16 → HCVR 11-07 13:30 → HCPC 11-08 14:11
PROVIDERS: ADMIT Thoracic Surgery (Cardiothoracic Vascular Surgery); ATTEND Thoracic Surgery (Cardiothoracic Vascular Surgery)
PROC: 06BQ4ZZ Excision of Left Saphenous Vein, Percutaneous Endoscopic Approach (ICD-10-PCS; 2016-11-07)
PROC: 5A1221Z Performance of Cardiac Output, Continuous (ICD-10-PCS; 2016-11-07)
PROC: 02100Z9 Bypass Coronary Artery, One Artery from Left Internal Mammary, Open Approach (ICD-10-PCS; principal; 2016-11-07 07:20)
PROC: 021109W Bypass Coronary Artery, Two Arteries from Aorta with Autologous Venous Tissue, Open Approach (ICD-10-PCS; 2016-11-07 07:20)
DX: I25.119 Atherosclerotic heart disease of native coronary artery with unspecified angina pectoris (principal); Z68.42 Body mass index [BMI] 45.0-49.9, adult; G45.9 Transient cerebral ischemic attack, unspecified; I48.91 Unspecified atrial fibrillation; I10 Essential (primary) hypertension; E66.01 Morbid (severe) obesity due to excess calories; E11.9 Type 2 diabetes mellitus without complications; E78.5 Hyperlipidemia, unspecified; R60.9 Edema, unspecified; Z79.4 Long term (current) use of insulin
CPT/HCPCS: 70450; 71010; 76937; 80048; 82948; 83735; 84100; 84443; 85014; 85025; 85027; 86850; 86900; 86901; 86920; 93005; 93318; 94002; 94150; 94640; 94664; 94667; 94668; C1713; C9399; J0131; J0282; J0690; J1644; J1815; J1940; J2150; J2250; J2720; J2765; J2930; J3010; J3370; J3475; J3480; J7040; J7050; J7060; J7120; P9047

== ENCOUNTER 2017-10-05 11:08 | Observation (INO) | payer OTHER ==
[2017-10-05] VITALS (9 sets, daily range): BP systolic 118–182; BP diastolic 60–88; PULSE 78–90; RESP 14–20; TEMP 97.8–98.4; O2SAT 95–100
[~2017-10-05 11:08] MED LIST changes: +AMIO200T PO; -AMLO10TA2 PO; +ASPI-516 CHEW; -ASPI81CH CHEW; +CEPH500C PO; +DIOV80TA4 PO; +DOCU1CAP39 PO; +FERR325T PO; +FURO1TAB60 PO; -FURO40TA PO; -HYDR50TA15 PO; -INSU1INJ14 SQ; +LEVEMIR SQ; +METO1TAB9 PO; -METO50TA11 PO; -NOVOLOGP2 SQ; +PANT40TA3 PO; +PLAV75TA29 PO; +POTA20TA5 PO; +THERTAB15 PO; -VALS320T6 PO; -VICT18IN SQ; +rolling walker
[2017-10-05] MEDS ORDERED: NITROGLYCERIN 2% OINT 1 GM PACKET TOPICAL ONE (11:45)
[2017-10-05] MEDS ORDERED: SODIUM CHLORIDE 0.9% FLUSH 10 ML FLUSH IVF PRN (11:45)
--- NOTE | 2017-10-05 11:47 | PD ---
HPI Chief Complaint: Cardiac Complaint Time Seen by Provider: 11:44 Travel History International Travel<30 days: No Contact w/Intl Traveler<30days: No Traveled to known affect area: No History of Present Illness HPI 61-year-old male patient with history of CAD status post CABG, GA last year, hypertension, presents to the ER today sent in by his primary care physician. He states that he has had poor control of his blood pressure in the past few weeks, had been seen by his primary care physician a few days ago and had been given amlodipine which she started yesterday, and states that he has been tracking his blood pressures and they are still quite elevated. He states his blood pressure was 175/102 this morning, and he started having chest discomfort with radiation down his left arm and his left neck area. He states the pain is currently a 4 out of 10. He had some nausea but denies any vomiting, abdominal pains, or any other symptoms. He talked to his primary care physician and was told to come here to the hospital for further evaluation. Modifying Factors: None Associated Signs & Symptoms: Elevated blood pressures, chest discomfort Risk Factors: Cardiac history, hypertension PFSH Past Medical History Arthritis: No Asthma: No Autoimmune Disease: No Anxiety: No Depression: No Heart Rhythm Problems: No Cancer: No Cardiovascular Problems: Yes High Cholesterol: No Chemotherapy: No Chest Pain: No Congestive Heart Failure: No COPD: No Cerebrovascular Accident: No Diabetes: Yes (DM 2 SINCE 1994) Endocrine: Yes GERD: No Genitourinary: No Hiatal Hernia: No Hypertension: Yes Immune Disorder: No Kidney Stones: No Musculoskeletal: Yes (LEFT HIP/LEG PAIN) Neurologic: No Psychiatric: No Reproductive: No Respiratory: Yes Migraines: No Radiation Therapy: No Renal Failure: No Seizures: No Sickle Cell Disease: No Sleep Apnea: No Thyroid Disease: No Ulcer: No Past Surgical History Abdominal Surgery: No AICD: No Arteriovenous Shunt: No Cardiac Surgery: Yes (CABG X3 11/07/16) Ear Surgery: No Endocrine Surgery: No Eye Surgery: No Genitourinary Surgery: No Insulin Pump: No Joint Replacement: No Oral Surgery: No Pacemaker: No Thoracic Surgery: No Social History Tobacco Use: No Substance Use: No Allergies-Medications (Allergen,Severity, Reaction): Coded Allergies: iodine (Unverified Allergy, Unknown, 06/05/17) potassium iodide (Unverified Allergy, Unknown, 06/05/17) povidone-iodine (Unverified Allergy, Unknown, 06/05/17) sodium iodide (Unverified Allergy, Unknown, 06/05/17) sodium iodide (Unverified Allergy, Unknown, 06/05/17) shellfish derived (Unverified Adverse Reaction, Unknown, Hives, 06/05/17) Reported Meds & Prescriptions Reported Meds & Active Scripts Active Pantoprazole (Pantoprazole Sodium) 40 Mg Tab 40 Mg PO DAILY Potassium Chloride Microencaps 20 Meq Tab 20 Meq PO DAILY Diovan (Valsartan) 80 Mg Tab 80 Mg PO DAILY Plavix (Clopidogrel Bisulfate) 75 Mg Tab 75 Mg PO DAILY Thera/Beta-Carotene (Multiple Vitamin) 1 Tab Tab 1 Tab PO DAILY Cephalexin 500 Mg Cap 500 Mg PO Q8HR Lasix (Furosemide) 40 Mg Tab 40 Mg PO DAILY Amiodarone (Amiodarone HCl) 200 Mg Tab 200 Mg PO DAILY Levemir Inj (Insulin Detemir) 1,000 unit/ 10 ML Vial 10 Units SQ BID Do not mix with any other Insulin. Ferrous Sulfate 325 Mg Tab 325 Mg PO BID@,17 Dok (Docusate Sodium) 100 Mg Cap 100 Mg PO BID Simvastatin 40 Mg Tab 40 Mg PO HS Pioglitazone (Pioglitazone HCl) 30 Mg Tab 30 Mg PO DAILY Metoprolol Succinate ER 24 HR (Metoprolol Succinate) 50 Mg Tab 50 Mg PO DAILY Metformin (Metformin HCl) 1,000 Mg Tab 1,000 Mg PO BIDPC With meals Aspirin 81 Mg Chew 81 Mg CHEW DAILY [rolling walker ] Ea Review of Systems Except as stated in HPI: all other systems reviewed are Neg Physical Exam Narrative GENERAL: Well-developed elderly after [place] male patient currently mild distress. Awake and oriented 3. SKIN: Focused skin assessment warm/dry. HEAD: Atraumatic. Normocephalic. EYES: Pupils equal and round. No scleral icterus. No injection or drainage. ENT: No nasal bleeding or discharge. Mucous membranes pink and moist. NECK: Trachea midline. No JVD. Supple. CARDIOVASCULAR: Regular rate and rhythm. No murmur appreciated. Pulses are present and equal bilaterally. RESPIRATORY: No accessory muscle use. Clear to auscultation. Breath sounds equal bilaterally. GASTROINTESTINAL: Abdomen soft, non-tender, nondistended. Hepatic and splenic margins not palpable. MUSCULOSKELETAL: No obvious deformities. No clubbing. No cyanosis. No edema. NEUROLOGICAL: Awake and alert. No obvious cranial nerve deficits. Motor grossly within normal limits. Normal speech. PSYCHIATRIC: Appropriate mood and affect; insight and judgment normal. Data Data Last Documented VS Vital Signs Date Time Temp Pulse Resp B/P (MAP) Pulse Ox O2 Delivery O2 Flow Rate FiO2 10/05/17 11:50 100 Room Air 10/05/17 11:13 98.4 90 14 Orders Orders Electrocardiogram (10/05/17 ) Electrocardiogram (10/05/17 11:35) Ckmb (Isoenzyme) Profile (10/05/17 11:35) Complete Blood Count With Diff (10/05/17 11:35) Comprehensive Metabolic Panel (10/05/17 11:35) Magnesium (Mg) (10/05/17 11:35) Prothrombin Time / Inr (Pt) (10/05/17 11:35) Act Partial Throm Time (Ptt) (10/05/17 11:35) Troponin I (10/05/17 11:35) Chest, Single Ap (10/05/17 11:35) Ecg Monitoring (10/05/17 11:35) Bilateral Bp Monitoring (10/05/17 11:35) Iv Access Insert/Monitor (10/05/17 11:35) Oximetry (10/05/17 11:35) Oxygen Administration (10/05/17 11:35) Sodium Chloride 0.9% Flush (Ns Flush) (10/05/17 11:45) Nitroglycerin 2% Oint (Nitroglycerin 2% (10/05/17 11:45) Labs Laboratory Tests Test 10/05/17 12:10 White Blood Count 8.1 TH/MM3 Red Blood Count 4.87 MIL/MM3 Hemoglobin 12.8 GM/DL Hematocrit 39.6 % Mean Corpuscular Volume 81.3 FL Mean Corpuscular Hemoglobin 26.2 PG Mean Corpuscular Hemoglobin Concent 32.2 % Red Cell Distribution Width 16.7 % Platelet Count 161 TH/MM3 Mean Platelet Volume 9.6 FL Neutrophils (%) (Auto) 76.6 % Lymphocytes (%) (Auto) 13.3 % Monocytes (%) (Auto) 7.9 % Eosinophils (%) (Auto) 1.5 % Basophils (%) (Auto) 0.7 % Neutrophils # (Auto) 6.2 TH/MM3 Lymphocytes # (Auto) 1.1 TH/MM3 Monocytes # (Auto) 0.6 TH/MM3 Eosinophils # (Auto) 0.1 TH/MM3 Basophils # (Auto) 0.1 TH/MM3 CBC Comment DIFF FINAL Differential Comment Prothrombin Time 10.6 SEC Prothromb Time International Ratio 1.0 RATIO Activated Partial Thromboplast Time 27.9 SEC Blood Urea Nitrogen 23 MG/DL Creatinine 0.87 MG/DL Random Glucose 153 MG/DL Total Protein 7.0 GM/DL Albumin 3.5 GM/DL Calcium Level 9.2 MG/DL Magnesium Level 1.6 MG/DL Alkaline Phosphatase 71 U/L Aspartate Amino Transf (AST/SGOT) 19 U/L Alanine Aminotransferase (ALT/SGPT) 26 U/L Total Bilirubin 0.4 MG/DL Sodium Level 137 MEQ/L Potassium Level 4.6 MEQ/L Chloride Level 103 MEQ/L Carbon Dioxide Level 28.4 MEQ/L Anion Gap 6 MEQ/L Estimat Glomerular Filtration Rate 89 ML/MIN Total Creatine Kinase 84 U/L Troponin I LESS THAN 0.02 NG/ML [facility] Medical Decision Making Medical Screen Exam Complete: Yes Emergency Medical Condition: Yes Medical Record Reviewed: Yes Interpretation(s) EKG shows normal sinus rhythm at a rate 96 bpm with no signs of acute ST-T changes. Laboratory Tests Test 10/05/17 12:10 Hemoglobin 12.8 GM/DL (13.0-17.0) Mean Corpuscular Hemoglobin 26.2 PG (27.0-34.0) Neutrophils (%) (Auto) 76.6 % (16.0-70.0) Blood Urea Nitrogen 23 MG/DL (7-18) Random Glucose 153 MG/DL (74-106) Troponin I LESS THAN 0.02 NG/ML Last 24 hours Impressions Chest X-Ray 10/05/17 1135 Signed Impressions: Service Date/Time: Thursday, October 05, 2017 12:04 - CONCLUSION: 1. Advanced cardiomegaly. Stable compared previous exam. Mansoor Whitfield MD Differential Diagnosis Elevated blood pressures, chest pains: ACS versus dysrhythmias versus anxiety attack versus hypertensive urgency Narrative Course Chest x-ray did not show any signs of acute processes. Cardiac enzymes are negative. Patient had been given nitroglycerin in the ER and had taken his own 162 mg of aspirin this morning. On reevaluation at 1 PM, his blood pressures much improved. He is chest pain-free. This point, my plan would be to admit him to the chest pain center for further evaluation of the chest pain. Diagnosis Primary Impression: Hypertension Additional Impression: Chest pain Admitting Information Admitting Physician Requests: Admit Ruby Elizabeth MD Oct 05, 2017 11:47
[2017-10-05 12:35] LABS: AUTOMATED NEUTROPHIL # 6.2 TH/MM3 (1.8-7.7); BASOPHIL # 0.1 TH/MM3 (0-0.2); BASOPHIL % 0.7 % (0.0-2.0); EOSINOPHIL # 0.1 TH/MM3 (0-0.4); EOSINOPHIL % 1.5 % (0.0-4.0); HEMATOCRIT 39.6 % (39.0-51.0); HEMO FLAGS DIFF FINAL; LYMPH % 13.3 % (9.0-44.0); LYMPHOCYTE # 1.1 TH/MM3 (1.0-4.8); MEAN CELL VOLUME 81.3 FL (80.0-100.0); MEAN CORPUSCULAR HEMOGLOBIN 26.2 PG (27.0-34.0); MEAN CORPUSCULAR HGB CONC 32.2 % (32.0-36.0); MONO % 7.9 % (0.0-8.0); NEUT % 76.6 % (16.0-70.0); PLATELET COUNT 161 TH/MM3 (150-450); RED BLOOD COUNT 4.87 MIL/MM3 (4.50-5.90); RED CELL DISTRIBUTION WIDTH 16.7 % (11.6-17.2); WHITE BLOOD COUNT 8.1 TH/MM3 (4.0-11.0)
--- NOTE | 2017-10-05 12:37 | RADRPT ---
EXAM DATE/TIME: 10/05/2017 12:04 [facility] COMPARISON: CHEST SINGLE AP, November 14, 2016, 15:21. INDICATIONS : Chest pain. MEDICAL HISTORY : Hypertension. Dyspnea, CAD SURGICAL HISTORY : CABG. ENCOUNTER: Initial ACUITY: 2 days PAIN SCORE: 5/10 LOCATION: Left upper chest FINDINGS: The examination demonstrates advanced cardiomegaly. This is similar previous exam. The patient is pos t median sternotomy. The lungs are clear. The bony structures are intact. CONCLUSION: 1. Advanced cardiomegaly. Stable compared previous exam. Mansoor Whitfield MD on October 05, 2017 at 12:35 Board Certified Radiologist. This report was verified electronically.
[2017-10-05 12:47] LABS: APTT (PATIENT) 27.9 SEC (24.3-30.1); PROTHROMBIN TIME - PATIENT 10.6 SEC (9.8-11.6)
[2017-10-05 12:57] LABS: ALKALINE PHOSPHATASE 71 U/L (45-117); ALT (GPT) 26 U/L (12-78); ANION GAP 6 MEQ/L (5-15); AST (GOT) 19 U/L (15-37); BICARBONATE 28.4 MEQ/L (21.0-32.0); BLOOD UREA NITROGEN 23 MG/DL (7-18); CHLORIDE 103 MEQ/L (98-107); GLOMERULAR FILTRATION RATE 89 ML/MIN (>89); MAGNESIUM 1.6 MG/DL (1.5-2.5); POTASSIUM 4.6 MEQ/L (3.5-5.1); SODIUM (NA) 137 MEQ/L (136-145); TOTAL BILIRUBIN ADULT 0.4 MG/DL (0.2-1.0)
[2017-10-05 13:04] LABS: CREATINE KINASE 84 U/L (39-308)
[2017-10-05] MEDS ORDERED: ONDANSETRON HCL 4 MG/2 ML VIAL IV PUSH PRN (14:45)
[2017-10-05] MEDS ORDERED: ACETAMINOPHEN 500 MG CPLT PO PRN (14:45)
[2017-10-05] MEDS ORDERED: NITROGLYCERIN 0.4 MG SL 25 TABS/BTL SL PRN (14:45)
--- NOTE | 2017-10-05 14:50 | HHI.HP ---
[facility] Service CARDIOLOGY [facility] Primary Care Physician Chava Monzon MD Chief Complaint HIGH BP, SOB AND CHEST PRESSURE History of Present Illness 61 YO obese diabetic, hypertensive male who underwent a 3 V CABG Oct by Dr. Mendieta. He was noted to have diffuse coronary disease with poor target vessels at surgery. He presented at that time with SOB/LEMON but no CP. Since surgery he feels that he has done well with little SOB and no CP till today. Recently he has noted that his BP has gone up and was started on Amlodipine about three days ago. Prior to this increase he had missed about two weeks of his metoprolol which may account for the BP increase. This morning he noted that his BP was even more elevated and then began to notice some pressure in his mid chest 6-8/10 and tingling of his left arm. There was no other radiation. He also felt SOB and slight nausea but no diaphoresis. After arrival he was placed on topical NTG and notes that the discomfort has decreased to about 4/10 now. He will be placed on [facility] Protocol to RO. Review of Systems Consitutional: COMPLAINS OF: Weight gain Respiratory: COMPLAINS OF: See HPI Cardiovascular: COMPLAINS OF: See [facility] Endocrine: COMPLAINS OF: Weight gain Past Family Social History Allergies: Coded Allergies: iodine (Unverified Allergy, Unknown, 06/05/17) potassium iodide (Unverified Allergy, Unknown, 06/05/17) povidone-iodine (Unverified Allergy, Unknown, 06/05/17) sodium iodide (Unverified Allergy, Unknown, 06/05/17) sodium iodide (Unverified Allergy, Unknown, 06/05/17) shellfish derived (Unverified Adverse Reaction, Unknown, Hives, 06/05/17) Past Medical History DIABETES HTN CAD POST CABG Past Surgical History NONE Reported Medications Reported Meds & Active Scripts Active Pantoprazole (Pantoprazole Sodium) 40 Mg Tab 40 Mg PO DAILY Potassium Chloride Microencaps 20 Meq Tab 20 Meq PO DAILY Diovan (Valsartan) 80 Mg Tab 80 Mg PO DAILY Plavix (Clopidogrel Bisulfate) 75 Mg Tab 75 Mg PO DAILY Thera/Beta-Carotene (Multiple Vitamin) 1 Tab Tab 1 Tab PO DAILY Cephalexin 500 Mg Cap 500 Mg PO Q8HR Lasix (Furosemide) 40 Mg Tab 40 Mg PO DAILY Amiodarone (Amiodarone HCl) 200 Mg Tab 200 Mg PO DAILY Levemir Inj (Insulin Detemir) 1,000 unit/ 10 ML Vial 10 Units SQ BID Do not mix with any other Insulin. Ferrous Sulfate 325 Mg Tab 325 Mg PO BID@ Dok (Docusate Sodium) 100 Mg Cap 100 Mg PO BID Simvastatin 40 Mg Tab 40 Mg PO HS Pioglitazone (Pioglitazone HCl) 30 Mg Tab 30 Mg PO DAILY Metoprolol Succinate ER 24 HR (Metoprolol Succinate) 50 Mg Tab 50 Mg PO DAILY Metformin (Metformin HCl) 1,000 Mg Tab 1,000 Mg PO BIDPC With meals Aspirin 81 Mg Chew 81 Mg CHEW DAILY [rolling walker ] Ea Active Ordered Medications Current Medications Medications (Trade) Dose Ordered Sig/Jane Route Start Time Stop Time Status Last Admin (NS Flush) 2 ml UNSCH PRN IVF 10/05/17 11:45 Family History FATHER of complications of diabetes MOTHER in 80s of cardiac problems SIBS 5/6 diabetic and one brother heart Social History Denies alcohol or tobacco use Single Retired Physical Exam Vital Signs Vital Signs Date Time Temp Pulse Resp B/P (MAP) Pulse Ox O2 Delivery O2 Flow Rate FiO2 10/05/17 13:42 86 16 134/88 (103) 96 Room Air 10/05/17 11:50 100 Room Air 10/05/17 11:50 100 Room Air 10/05/17 11:13 98.4 90 14 182/86 (118) 95 Physical Exam GENERAL: Obese SKIN: Warm and dry. HEAD: Atraumatic. Normocephalic. Balding EYES: Pupils equal and round. No scleral icterus. No injection or drainage. ENT: No nasal bleeding or discharge. Mucous membranes pink and moist. Edentulous NECK: Trachea midline. No JVD. No bruits CARDIOVASCULAR: Regular rate and rhythm. Healed mid sternal scar RESPIRATORY: No accessory muscle use. Clear to auscultation. Breath sounds equal bilaterally but decreased. GASTROINTESTINAL: Abdomen soft, non-tender, nondistended. Hepatic and splenic margins not palpable. MUSCULOSKELETAL: Extremities without clubbing, cyanosis but 2+ pitting edema to knee. No obvious deformities. NEUROLOGICAL: Awake and alert. No obvious cranial nerve deficits. Motor grossly within normal limits. Five out of 5 muscle strength in the arms and legs. Normal speech. PSYCHIATRIC: Appropriate mood and affect; insight and judgment normal. Laboratory Laboratory Tests Test 10/05/17 12:10 White Blood Count 8.1 Red Blood Count 4.87 Hemoglobin 12.8 Hematocrit 39.6 Mean Corpuscular Volume 81.3 Mean Corpuscular Hemoglobin 26.2 Mean Corpuscular Hemoglobin Concent 32.2 Red Cell Distribution Width 16.7 Platelet Count 161 Mean Platelet Volume 9.6 Neutrophils (%) (Auto) 76.6 Lymphocytes (%) (Auto) 13.3 Monocytes (%) (Auto) 7.9 Eosinophils (%) (Auto) 1.5 Basophils (%) (Auto) 0.7 Neutrophils # (Auto) 6.2 Lymphocytes # (Auto) 1.1 Monocytes # (Auto) 0.6 Eosinophils # (Auto) 0.1 Basophils # (Auto) 0.1 CBC Comment DIFF FINAL Differential Comment Prothrombin Time 10.6 Prothromb Time International Ratio 1.0 Activated Partial Thromboplast Time 27.9 Blood Urea Nitrogen 23 Creatinine 0.87 Random Glucose 153 Total Protein 7.0 Albumin 3.5 Calcium Level 9.2 Magnesium Level 1.6 Alkaline Phosphatase 71 Aspartate Amino Transf (AST/SGOT) 19 Alanine Aminotransferase (ALT/SGPT) 26 Total Bilirubin 0.4 Sodium Level 137 Potassium Level 4.6 Chloride Level 103 Carbon Dioxide Level 28.4 Anion Gap 6 Estimat Glomerular Filtration Rate 89 Total Creatine Kinase 84 Troponin I LESS THAN 0.02 Result Diagram: 10/05/17 1210 10/05/17 1210 Course Placed on [facility] protocol to RO ACS Caprini VTE Risk Assessment Caprini VTE Risk Assessment: Mod/High Risk (score >= 2) Caprini Risk Assessment Model Point Value = 1 Point Value = 2 Point Value = 3 Point Value = 5 Age 41-60 Minor surgery BMI > 25 kg/m2 Swollen legs Varicose veins or History of unexplained or recurrent spontaneous Oral contraceptives or hormone replacement Sepsis (< 1 month) Serious lung disease, including pneumonia (< 1 month) Abnormal pulmonary function Acute myocardial infarction Congestive heart failure (< 1 month) History of inflammatory bowel disease Medical patient at bed rest Age 61-74 Arthroscopic surgery Major open surgery (> 45 min) Laparoscopic surgery (> 45 min) Malignancy Confined to bed (> 72 hours) Immobilizing plaster cast Central venous access Age >= 75 History of VTE Family history of VTE Factor V Leiden Prothrombin [id number] Lupus anticoagulant Anticardiolipin antibodies Elevated serum homocysteine Heparin-induced thrombocytopenia Other congenital or acquired thrombophilia Stroke (< 1 month) Elective arthroplasty Hip, pelvis, or leg fracture Acute spinal cord injury (< 1 month) Prophylaxis Regimen Total Risk Factor Score Risk Level Prophylaxis Regimen 0-1 Low Early ambulation 2 Moderate Order ONE of the following: *Sequential Compression Device (SCD) *Heparin 5000 units SQ BID 3-4 Higher Order ONE of the following medications: *Heparin 5000 units SQ TID *Enoxaparin/Lovenox 40 mg SQ daily (WT < 150 kg, CrCl > 30 mL/min) *Enoxaparin/Lovenox 30 mg SQ daily (WT < 150 kg, CrCl > 10-29 mL/min) *Enoxaparin/Lovenox 30 mg SQ BID (WT < 150 kg, CrCl > 30 mL/min) AND/OR *Sequential Compression Device (SCD) 5 or more Highest Order ONE of the following medications: *Heparin 5000 units SQ TID (Preferred with Epidurals) *Enoxaparin/Lovenox 40 mg SQ daily (WT < 150 kg, CrCl > 30 mL/min) *Enoxaparin/Lovenox 30 mg SQ daily (WT < 150 kg, CrCl > 10-29 mL/min) *Enoxaparin/Lovenox 30 mg SQ BID (WT < 150 kg, CrCl > 30 mL/min) AND *Sequential Compression Device (SCD) Assessment and Plan Problem List: (1) Diabetes mellitus ICD Codes: E11.9 - Type 2 diabetes mellitus without complications Status: Chronic Plan: Per PCP (2) CAD (coronary artery disease) ICD Codes: I25.10 - Atherosclerotic heart disease of [place] coronary artery without angina pectoris Status: Chronic Plan: Evaluate by [facility] PROTOCOL (3) Hyperlipemia ICD Codes: E78.5 - Hyperlipidemia, unspecified Status: Chronic (4) Morbid obesity with BMI of 45.0-49.9, adult ICD Codes: E66.01 - Morbid (severe) obesity due to excess calories; Z68.42 - Body mass index (BMI) 45.0-49.9, adult Status: Chronic Plan: Discussed diet and life stype (5) Chest pain ICD Codes: R07.9 - Chest pain, unspecified Status: Acute (6) Hypertension ICD Codes: I10 - Essential (primary) hypertension Status: Chronic Plan: Manage acutely and FU with Data Entry Technician Problem Qualifiers (1) CAD (coronary artery disease): Mode Santiago MD Oct 05, 2017 14:50
[2017-10-05 16:11] LABS: CREATINE KINASE 75 U/L (39-308)
[2017-10-05] MEDS ORDERED: ATOR80TA45 PO (17:49)
[2017-10-05] MEDS ORDERED: HUMALOG SQ (17:49)
[2017-10-05] MEDS ORDERED: VICT18IN SQ (17:52)
[2017-10-05] MEDS ORDERED: INSU1.2I SQ ×2 (17:52)
[2017-10-05] MEDS: metFORMIN HCL 500 MG TAB PO SCH (18:36)
[2017-10-05 19:09] LABS: CREATINE KINASE 72 U/L (39-308)
[2017-10-05] MEDS ORDERED: SODIUM CHLORIDE 0.9% FLUSH 10 ML FLUSH IV FLUSH SCH (21:00)
[2017-10-06 00:06] VITALS: BP 132/63; PULSE 76; RESP 18; TEMP 97.8; O2SAT 96
[2017-10-06 03:41] VITALS: BP 110/59; PULSE 81; RESP 18; TEMP 97.9; O2SAT 95
[2017-10-06 07:13] VITALS: O2SAT 94
[2017-10-06 08:00] VITALS: PULSE 81
[2017-10-06 08:03] VITALS: BP 177/86; PULSE 90; RESP 22; TEMP 98; O2SAT 96
[2017-10-06] MEDS ORDERED: INSULIN DETEMIR 100 UNITS/ML VIAL SQ SCH (09:00)
[2017-10-06] MEDS ORDERED: LIRAGLUTIDE 1.8 MG SQ SCH (09:00)
[2017-10-06] MEDS ORDERED: METOPROLOL SUCCINATE 50 MG EXTENDED RELEASE TAB PO SCH (09:00)
[2017-10-06] MEDS ORDERED: POTASSIUM CHLORIDE 20 MEQ CONTROLLED RELEASE TAB PO SCH (09:00)
[2017-10-06] MEDS ORDERED: VALSARTAN 80 MG TAB PO SCH (09:00)
[2017-10-06] MEDS ORDERED: MULTIVITAMIN TAB PO SCH (09:00)
[2017-10-06] MEDS ORDERED: FUROSEMIDE 40 MG TAB PO SCH (09:00)
[2017-10-06] MEDS ORDERED: ASPIRIN 325 MG TAB PO SCH (09:00)
[2017-10-06] MEDS ORDERED: PANTOPRAZOLE SOD 40 MG DELAYED RELEASE TAB PO SCH (09:00)
[2017-10-06] MEDS ORDERED: REGADENOSON INJ 0.4 MG/5 ML SYR ONE (09:39)
[2017-10-06] MEDS: metFORMIN HCL 500 MG TAB PO SCH (11:50)
--- NOTE | 2017-10-06 12:07 | RADRPT ---
EXAM DATE/TIME: 10/06/2017 09:49 [place] COMPARISON: No previous studies available for comparison. INDICATIONS : Chest pain. Angina. DOSE: 35 mCi Tc99m Myoview at stress. 11 mCi Tc99m Myoview at rest. 0.4 mg Lexiscan STRESS SYMPTOMS: Shortness of breath, chest pressure. EJECTION FRACTION: 35% MEDICAL HISTORY : Hypertension. Diabetes mellitus type 2. Myocardial infarction. SURGICAL HISTORY : CABG ENCOUNTER: Initial ACUITY: 1 day PAIN SCALE: 4/10 LOCATION: Bilateral chest TECHNIQUE: The patient underwent pharmacologic stress with infusion of prescribed dose. Continuous ECG tracing was monitored during stress. Gated SPECT imaging was performed after stress and conventional SPECT i maging was performed at rest. The examination was performed on a SPECT/CT scanner, both attenuation and non-corrected datasets were reviewed. FINDINGS: The gated cineloop images demonstrate global hypokinesis. Left ventricular ejection fraction is calcu lated at 35%. The cardiac SPECT stress and rest images demonstrate fixed defects involving the inferior and lateral raman suggesting infarcts in the RCA and LCx distributions. No reversible defects are noted to sugge st ischemia. CONCLUSION: 1. Global hypokinesis with left ventricular ejection fraction equaling 35%. 2. Fixed defects involving the inferior and lateral wall suggesting infarcts in the RCA and LCx distr ibutions. 3. No reversible defects to suggest ischemia. RISK CATEGORY: High risk (greater than 3% annual mortality rate). Shahid Leon MD on October 06, 2017 at 12:02 Board Certified Radiologist. This report was verified electronically.
--- NOTE | 2017-10-06 12:29 | HHI.DCPOC ---
Discharge Care Plan Diagnosis: (1) Hx of coronary artery disease (2) History of coronary artery bypass graft x 3 (3) Chest pain in adult Goals to Promote Your Health * To prevent worsening of your condition and complications * To maintain your health at the optimal level Directions to Meet Your Goals Take your medications as prescribed Follow your dietary instruction Follow activity as directed Keep your appointments as scheduled Take your immunizations and boosters as scheduled If your symptoms worsen call your PCP, if no PCP go to Urgent Care Center or Emergency Room Smoking is Dangerous to Your Health. Avoid second hand smoke Call the 24-hour hour crisis hotline for domestic abuse at Moriah Mcfarland Oct 06, 2017 12:29
--- NOTE | 2017-10-06 12:31 | EKG ---
Date Performed: 10/05/2017 Time Performed: 11:39:51 PTAGE: 61 years EKG: Sinus rhythm WITH FIRST DEGREE AV BLOCK POSSIBLE INFERIOR MYOCARDIAL INFARCTION ABNORMAL ECG NO PREVIOUS TRACING DOCTOR: Aureliano Caicedo Interpretating Date/Time 10/06/2017 12:30:01
--- NOTE | 2017-10-06 12:32 | HHI.DS ---
Discharge Summary Admission Date Oct 05, 2017 at 13:26 Discharge Date: Oct 06, 2017 Admitting Diagnosis chest pain Brief History 61 year old male with history of CAD and CABGx3 October 2016 presented to ER for further evaluation of chest pain. Admitted to chest pain center, ruled out with 3 sets of EKG and cardiac enzymes, and proceeded with chemical stress testing. CBC/BMP: 10/05/17 1210 10/05/17 1210 Significant Findings Laboratory Tests Test 10/05/17 12:10 10/05/17 15:10 10/05/17 18:10 Hemoglobin 12.8 GM/DL (13.0-17.0) Mean Corpuscular Hemoglobin 26.2 PG (27.0-34.0) Neutrophils (%) (Auto) 76.6 % (16.0-70.0) Blood Urea Nitrogen 23 MG/DL (7-18) Random Glucose 153 MG/DL (74-106) Troponin I LESS THAN 0.02 NG/ML LESS THAN 0.02 NG/ML LESS THAN 0.02 NG/ML Imaging Last Impressions Myocardial Perfusion Scan Nuc Med 10/06/17 0000 Signed Impressions: Service Date/Time: Friday, October 06, 2017 09:49 - CONCLUSION: 1. Global hypokinesis with left ventricular ejection fraction equaling 35%%. 2. Fixed defects involving the inferior and lateral wall suggesting infarcts in the RCA and LCx distributions. 3. No reversible defects to suggest ischemia. RISK CATEGORY: High risk (greater than 3%% annual mortality rate). Shahid Leon MD Chest X-Ray 10/05/17 1135 Signed Impressions: Service Date/Time: Thursday, October 05, 2017 12:04 - CONCLUSION: 1. Advanced cardiomegaly. Stable compared previous exam. Mansoor Whitfield MD Pt Condition on Discharge: Good Discharge Disposition: Discharge Home Discharge Instructions DIET: Follow Instructions for: Heart Healthy Diet Activities you can perform: Regular-No Restrictions Moriah Mcfarland Oct 06, 2017 12:32
[2017-10-06] MEDS ORDERED: INSULIN ASPART 1,000 UNITS/10 ML VIAL SQ ONE (13:00)
[2017-10-06] MEDS ORDERED: amLODIPine BESYLATE 5 MG TAB PO ONE (13:00)
--- NOTE | 2017-10-06 15:58 | EKG ---
Date Performed: 10/05/2017 Time Performed: 18:38:05 PTAGE: 61 years EKG: Sinus rhythm WITH FIRST DEGREE AV BLOCK PROBABLE INFERIOR MYOCARDIAL INFARCTION ABNORMAL ECG NO SIG CHANGE PREVIOUS TRACING : 10/05/2017 15.24 DOCTOR: Mode Santiago Interpretating Date/Time 10/06/2017 15:57:39
--- NOTE | 2017-10-06 16:00 | EKG ---
Date Performed: 10/05/2017 Time Performed: 15:24:36 PTAGE: 61 years EKG: Sinus rhythm WITH FIRST DEGREE AV BLOCK MARKED RIGHT AXIS DEVIATION POSSIBLE INFERIOR MYOCARDIAL INFARCTION ABNOR MAL ECG NO SIG CHANGES NO PREVIOUS TRACING DOCTOR: Mode Santiago Interpretating Date/Time 10/06/2017 15:58:13
--- NOTE | 2017-10-06 16:07 | TR ---
Date Performed: 10/06/2017 Time Performed: 10:23:47 DOCTOR: Mode Santiago DRUG LIST: CLINICAL HISTORY: ANGINA REASON FOR TEST: REASON FOR ENDING: OBSERVATION: CONCLUSION: Lexiscan stress test was performed under standard four minute protocol. Radionuclide was injected one minute prior to ending the test. No electrocardiographic abormalities were present to suggest ischemia. Nuclear imaging and interpretation are pending. COMMENTS:
[2017-10-06] MEDS ORDERED: INSULIN ASPART 1,000 UNITS/10 ML VIAL SQ SCH (17:00)
== END 2017-10-06 15:48 | disposition home or self-care (01) ==
LOC: NEPC 11:08 → NEDA 13:26 → NEPHCDU 15:12
PROVIDERS: ADMIT Internal Medicine Interventional Cardiology; ATTEND Internal Medicine Interventional Cardiology
DX: R06.02 Shortness of breath (principal); R07.9 Chest pain, unspecified; R20.2 Paresthesia of skin; I25.119 Atherosclerotic heart disease of native coronary artery with unspecified angina pectoris; I11.9 Hypertensive heart disease without heart failure; I44.0 Atrioventricular block, first degree; R94.31 Abnormal electrocardiogram [ECG] [EKG]; I25.2 Old myocardial infarction; E78.5 Hyperlipidemia, unspecified; E11.9 Type 2 diabetes mellitus without complications; E66.01 Morbid (severe) obesity due to excess calories; Z95.1 Presence of aortocoronary bypass graft; Z79.899 Other long term (current) drug therapy; Z79.82 Long term (current) use of aspirin; Z79.84 Long term (current) use of oral hypoglycemic drugs; Z68.42 Body mass index [BMI] 45.0-49.9, adult
CPT/HCPCS: 71010; 78452; 80053; 82550; 82948; 83735; 84484; 85025; 85610; 85730; 93005; 93017; 96372; 99285; A9502; G0378; J1815; J2785